=== PATIENT | female | born 1965 | race Caucasian/White ===

== ENCOUNTER 2019-08-15 22:09 | Emergency (ER) | payer OTHER ==
[~2019-08-15] VITALS: Ht 165.1 cm; Wt 77.1 kg
--- OUTSIDE RECORDS SUMMARY | 2019-08-15 22:12 | XMS REPORT | Summary of Care ---
Author Author [facility] Organization [facility] Address Unknown Phone Unavailable Encounter [facility] [place]ODRICK) [id number] Date(s): 09/30/18 - 10/01/[address] [address]- Discharge Disposition: Home or Self Care Attending Physician: Chelita Meza DO Admitting Physician: Chelita Meza DO Vital Signs 1 2 3 Most recent to oldest [Reference Range]: 165.1 cm (10/01/18 12:57 AM) Height 98.1 DegF (10/01/18 7:30 AM) 98.5 DegF (10/01/18 5:58 AM) 98.7 DegF (10/01/18 1:25 AM) Temperature Oral [96.4-99.1 DegF] 127/75 mmHg (10/01/18 7:30 AM) 113/72 mmHg (10/01/18 5:58 AM) 109/76 mmHg (10/01/18 1:25 AM) Blood Pressure [90-140/60-90 mmHg] 17 BRMIN (10/01/18 7:30 AM) 16 BRMIN (10/01/18 5:58 AM) 18 BRMIN (10/01/18 1:25 AM) Respiratory Rate [14-20 BRMIN] 84 bpm (10/01/18 7:30 AM) 89 bpm (10/01/18 5:58 AM) 103 bpm *HI* (10/01/18 1:25 AM) Peripheral Pulse Rate [60-100 bpm] 96.864 kg (10/01/18 12:57 AM) 99.545 kg (09/30/18 4:56 PM) Weight 35.54 m2 (10/01/18 12:57 AM) Body Mass Index Problem List Condition Effective Dates Status Health Status Informan t Anxiety(Confirmed) Active GERD Active (gastroesophageal reflux disease)(Confirmed) Hx of laparoscopic Resolved adjustable gastric banding(Confirmed) Hypertension(Confirm Active ed) Morbid Active obesity(Confirmed) Allergies, Adverse Reactions, Alerts Substance Reaction Severity Status NKDA Active Latex Active Grass Active Medications acetaminophen 650 mg, 2 tab, Route: PO, Drug form: TAB, Q4H, Dosing Weight 99.545, kg, PRN For Temp > 100.4 F, Start date: 09/30/18 22:54:00 CDT, Duration: 30 day, Stop date: 10/30/18 22:53:00 CDT, 0 Notes: Do not exceed 4 gm/day. (Same as: Tylenol) Start Date: 09/30/18 Stop Date: 10/01/18 Status: Discontinued Adderall XR 30 mg, Route: PO, Drug form: ERCAP, BID, Dosing Weight 99.545, kg, Start date: 0 10/01/18 9:00:00 CDT, Duration: 30 day, Stop date: 10/30/18 17:00:00 CDT Start Date: 10/01/18 Stop Date: 10/01/18 Status: Discontinued ALPRAZOLam 2 mg oral tablet 1 mg, 1 tab, Route: PO, Drug form: TAB, BID, Dosing Weight 99.545, kg, Start brii e: 10/01/18 9:00:00 CDT, Duration: 30 day, Stop date: 10/30/18 17:00:00 CDT, 0 Notes: With food or milk(Same as: Xanax) Start Date: 10/01/18 Stop Date: 10/01/18 Status: Discontinued ALPRAZOLam 2 mg oral tablet 1 mg = 0.5 tab, PO, BID Start Date: 10/01/18 Status: Ordered calcium gluconate + Sodium Chloride 0.9% IV 100 mL 2 gm, 20 mL, Route: IVPB, PRN, Dosing Weight 96.864, kg, PRN Abnormal Lab Result , For NON-ICU Patients Only., Start date: 10/01/18 7:34:00 CDT, Duration: 30 day , Stop date: 10/31/18 7:33:00 CDT, 0 Notes: WASTE: F/P - Sink; E - Municipal Trash Bin Start Date: 10/01/18 Stop Date: 10/01/18 Status: Discontinued calcium gluconate + Sodium Chloride 0.9% IV 150 mL 3 gm, 30 mL, Route: IVPB, PRN, Dosing Weight 96.864, kg, PRN Abnormal Lab Result , For NON-ICU Patients Only., Start date: 10/01/18 7:34:00 CDT, Duration: 30 day , Stop date: 10/31/18 7:33:00 CDT, 0 Notes: WASTE: F/P - Sink; E - Municipal Trash Bin Start Date: 10/01/18 Stop Date: 10/01/18 Status: Discontinued Dextrose 50% Syringe 12.5 gm, 25 mL, Route: IVP, Drug Form: INJ, Dosing Weight 99.545, kg, PRN, PRN B lood Glucose Results, Start date: 09/30/18 22:54:00 CDT, Duration: 30 day, Stop date: 10/30/18 22:53:00 CDT, 0 Start Date: 09/30/18 Stop Date: 10/01/18 Status: Discontinued Dextrose 50% Syringe 25 gm, 50 mL, Route: IVP, Drug Form: INJ, Dosing Weight 99.545, kg, PRN, PRN Blo od Glucose Results, Start date: 09/30/18 22:54:00 CDT, Duration: 30 day, Stop da te: 10/30/18 22:53:00 CDT, 0 Start Date: 09/30/18 Stop Date: 10/01/18 Status: Discontinued enoxaparin 40 mg, 0.4 mL, Route: SUB-Q, Drug form: INJ, [id number], Dosing Weight 96.864, kg, Start date: 10/01/18 8:00:00 CDT, Duration: 30 day, Stop date: 10/30/18 8:00:00 CDT, 0 Notes: (Same as: Lovenox) Start Date: 10/01/18 Stop Date: 10/01/18 Status: Discontinued famotidine 20 mg, 2 mL, Route: IVP, Drug form: INJ, ONCE, Dosing Weight 99.545, kg, Start d ate: 09/30/18 21:12:00 CDT, Stop date: 09/30/18 21:12:00 CDT, 0 Notes: (Same as: Pepcid)Can be dilute in 5-10cc NS IVP: Slow IV push over at le ast 2 minutes. Start Date: 09/30/18 Stop Date: 09/30/18 Status: Completed Flomax 0.4 mg, 1 cap, Route: PO, Drug form: CAP, After Breakfast, Dosing Weight 96.864, kg, Start date: 10/02/18 8:30:00 CDT, Duration: 30 day, Stop date: 10/31/18 8:3 0:00 CDT, 0 Notes: (Same As: Flomax) "Do Not Crush" Start Date: 10/02/18 Stop Date: 10/01/18 Status: Canceled glucagon 1 mg, Route: IM, Drug form: PDR/INJ, PRN, Dosing Weight 99.545, kg, PRN Blood Gl ucose Results, Start date: 09/30/18 22:54:00 CDT, Duration: 30 day, Stop date: 0 10/30/18 22:53:00 CDT, 0 Start Date: 09/30/18 Stop Date: 10/01/18 Status: Discontinued hydrALAZINE 10 mg, Route: IVP, ONCE, Dosing Weight 99.545, kg, Priority: STAT, Start date: 0 09/30/18 23:10:00 CDT, Stop date: 09/30/18 23:10:00 CDT Start Date: 09/30/18 Stop Date: 09/30/18 Status: Completed hydrochlorothiazide 25 mg oral tablet 25 mg, 1 tab, Route: PO, Drug form: TAB, Daily, Dosing Weight 99.545, kg, Start date: 10/01/18 9:00:00 CDT, Duration: 30 day, Stop date: 10/30/18 9:00:00 CDT, 0 Notes: (Same as: Hydrodiuril) With food. Start Date: 10/01/18 Stop Date: 10/01/18 Status: Discontinued magnesium oxide 800 mg, 2 tab, Route: PO, Drug form: TAB, PRN, Dosing Weight 96.864, kg, PRN Abn ormal Lab Result, For NON-ICU Patients Only., Start date: 10/01/18 7:34:00 CDT, Duration: 30 day, Stop date: 10/31/18 7:33:00 CDT, 0 Notes: (Same as: Mag-Ox 400)Magnesium oxide [id number] elemental magnesiumDose= ____mg magnesium oxide (___mg elemental magnesium) Start Date: 10/01/18 Stop Date: 10/01/18 Status: Discontinued magnesium sulfate 1 gm, 100 mL, Route: IVPB, Drug form: INJ, PRN, Dosing Weight 96.864, kg, PRN Ab normal Lab Result, For NON-ICU Patients Only., Start date: 10/01/18 7:34:00 CDT, Duration: 30 day, Stop date: 10/31/18 7:33:00 CDT, 0 Notes: WASTE: F/P - Sink; E - Municipal Trash Bin Start Date: 10/01/18 Stop Date: 10/01/18 Status: Discontinued magnesium sulfate 2 gm, 50 mL, Route: IVPB, Drug form: INJ, PRN, Dosing Weight 96.864, kg, PRN Abn ormal Lab Result, For NON-ICU Patients Only., Start date: 10/01/18 7:34:00 CDT, Duration: 30 day, Stop date: 10/31/18 7:33:00 CDT, 0 Notes: WASTE: F/P - Sink; E - Municipal Trash Bin Start Date: 10/01/18 Stop Date: 10/01/18 Status: Discontinued metoclopramide 10 mg, 2 mL, Route: IVP, Drug form: INJ, ONCE, Dosing Weight 99.545, kg, Start d ate: 09/30/18 21:12:00 CDT, Stop date: 09/30/18 21:12:00 CDT, 0 Notes: (Same as: Reglan) Start Date: 09/30/18 Stop Date: 09/30/18 Status: Completed morphine Sulfate 2 mg, 0.5 mL, Route: IVP, Drug form: SOLN, Q4H, Dosing Weight 99.545, kg, PRN Pa in Score 7-10, Start date: 09/30/18 22:54:00 CDT, Duration: 30 day, Stop date: 0 10/30/18 22:53:00 CDT, 0 Notes: (Same as:MORPhine Sulfate) Start Date: 09/30/18 Stop Date: 10/01/18 Status: Discontinued morphine Sulfate 4 mg, 1 mL, Route: IVP, Drug form: SOLN, ONCE, Dosing Weight 99.545, kg, Priorit y: STAT, Start date: 09/30/18 21:12:00 CDT, Stop date: 09/30/18 21:12:00 CDT, 0 Notes: (Same as:MORPhine Sulfate) Start Date: 09/30/18 Stop Date: 09/30/18 Status: Completed ondansetron 8 mg, Route: IVP, Q8H, Dosing Weight 99.545, kg, PRN Nausea & Vomiting, Start date: 09/30/18 22:54:00 CDT, Duration: 30 day, Stop date: 10/30/18 22:53:00 CDT Start Date: 09/30/18 Stop Date: 10/01/18 Status: Discontinued ondansetron 8 mg, 4 mL, Route: IVP, Drug form: INJ, Q8H, Dosing Weight 99.545, kg, PRN Nause a & Vomiting, Start date: 09/30/18 22:54:00 CDT, Duration: 30 day, Stop date: 10/30/18 22:53:00 CDT, 0 Notes: (Same as: Lillian) MEDICATION WASTE Product Size: 4 mgProduct Was kelly: ___ mg Start Date: 09/30/18 Stop Date: 10/01/18 Status: Discontinued pantoprazole 40 mg, Route: IV, Daily, Dosing Weight 99.545, kg, Start date: 10/01/18 9:00:00 CDT, Duration: 30 day, Stop date: 10/30/18 9:00:00 CDT Start Date: 10/01/18 Stop Date: 10/01/18 Status: Discontinued polyethylene glycol 3350 17 gm, 1 pkt, Route: PO, Drug form: PWDR, Daily, Dosing Weight 99.545, kg, Start date: 10/01/18 9:00:00 CDT, Duration: 30 day, Stop date: 10/30/18 9:00:00 CDT, 0 Notes: Dissolve in 8 oz of water or juice.(Same as: Miralax) Start Date: 10/01/18 Stop Date: 10/01/18 Status: Discontinued potassium chloride 10 mEq, 100 mL, Route: IVPB, Drug form: INJ, Q1H, Dosing Weight 99.545, kg, Tota l Dose = 40 meq, Start date: 09/30/18 23:00:00 CDT, Duration: 4 doses or times, Stop date: 10/01/18 2:00:00 CDT, Peripheral Line, 0 Notes: Infuse at a rate of 10 mEq/hr.(Same as: KCL) Start Date: 09/30/18 Stop Date: 10/01/18 Status: Completed potassium chloride 40 mEq, 2 tab, Route: PO, Drug form: ERTAB, ONCE, Dosing Weight 96.864, kg, Star t date: 10/01/18 5:53:00 CDT, Stop date: 10/01/18 5:53:00 CDT, 0 Notes: (Same as: K-Dur 20)"Do Not Crush" Give with food and full glass of water For patients unable to swallow tablet, dissolve in one half glass of water. Allo w about 2 minutes for the tablets to disintegrate. Stir before giving to prepare slurry and administer.Please exclude Patients with feeding tube less than 14 Marshallese (Dobhoff, J-tube etc) and pediatric and patients. Start Date: 10/01/18 Stop Date: 10/01/18 Status: Completed potassium chloride 10 mEq, 100 mL, Route: IVPB, Drug form: INJ, Q1H, Dosing Weight 96.864, kg, Tota l Dose = 20 meq, Start date: 10/01/18 6:00:00 CDT, Duration: 2 doses or times, S top date: 10/01/18 7:00:00 CDT, Peripheral Line, 0 Notes: Infuse at a rate of 10 mEq/hr.(Same as: KCL) Start Date: 10/01/18 Stop Date: 10/01/18 Status: Completed potassium chloride 20 mEq, 1 tab, Route: PO, Drug form: ERTAB, PRN, Dosing Weight 96.864, kg, PRN A bnormal Lab Result, For NON-ICU Patients Only, Start date: 10/01/18 7:34:00 CDT, Duration: 30 day, Stop date: 10/31/18 7:33:00 CDT, 0 Notes: (Same as: K-Dur 20)"Do Not Crush" Give with food and full glass of water For patients unable to swallow tablet, dissolve in one half glass of water. Allo w about 2 minutes for the tablets to disintegrate. Stir before giving to prepare slurry and administer.Please exclude Patients with feeding tube less than 14 Marshallese (Dobhoff, J-tube etc) and pediatric and patients. Start Date: 10/01/18 Stop Date: 10/01/18 Status: Discontinued potassium chloride 20 mEq, 1 tab, Route: NJ, Drug form: ERTAB, PRN, Dosing Weight 96.864, kg, PRN A bnormal Lab Result, For NON-ICU Patients Only, Start date: 10/01/18 7:34:00 CDT, Duration: 30 day, Stop date: 10/31/18 7:33:00 CDT, 0 Notes: (Same as: K-Dur 20)"Do Not Crush" Give with food and full glass of water For patients unable to swallow tablet, dissolve in one half glass of water. Allo w about 2 minutes for the tablets to disintegrate. Stir before giving to prepare slurry and administer.Please exclude Patients with feeding tube less than 14 Marshallese (Dobhoff, J-tube etc) and pediatric and patients. Start Date: 10/01/18 Stop Date: 10/01/18 Status: Discontinued potassium chloride 10 mEq, 100 mL, Route: IVPB, Drug form: INJ, PRN, Dosing Weight 96.864, kg, PRN Abnormal Lab Result, For NON-ICU Patients Only, Start date: 10/01/18 7:34:00 CDT , Duration: 30 day, Stop date: 10/31/18 7:33:00 CDT, 0 Notes: Infuse at a rate of 10 mEq/hr.(Same as: KCL) Start Date: 10/01/18 Stop Date: 10/01/18 Status: Discontinued potassium phosphate + Sodium Chloride 0.9% IV 250 mL 30 mmol, 10 mL, Route: IVPB, PRN, Dosing Weight 96.864, kg, PRN Abnormal Lab Res ult, For NON-ICU Patients Only., Start date: 10/01/18 7:34:00 CDT, Duration: 30 day, Stop date: 10/31/18 7:33:00 CDT, 0 Notes: (Same as: K Phosphate.)Do not infuse phosphorous concurrently in the same line as TPN or IVF that contains calcium. For double lumen central lines, phosp horous may be infused in a separate lumen from TPN. 1 mMol phoshate has 1.47 mE q potassium Infuse over 4 hours Start Date: 10/01/18 Stop Date: 10/01/18 Status: Discontinued potassium phosphate + Sodium Chloride 0.9% IV 250 mL 15 mmol, 5 mL, Route: IVPB, PRN, Dosing Weight 96.864, kg, PRN Abnormal Lab Resu lt, For NON-ICU Patients Only., Start date: 10/01/18 7:34:00 CDT, Duration: 30 d ay, Stop date: 10/31/18 7:33:00 CDT, 0 Notes: (Same as: K Phosphate.)Do not infuse phosphorous concurrently in the same line as TPN or IVF that contains calcium. For double lumen central lines, phosp horous may be infused in a separate lumen from TPN. 1 mMol phoshate has 1.47 mE q potassium Infuse over 4 hours Start Date: 10/01/18 Stop Date: 10/01/18 Status: Discontinued potassium phosphate-sodium phosphate 250 mg-280 mg-160 mg oral powder for recons titution 2 pkt, Route: PO, Drug Form: PDR/REC, Dosing Weight 96.864, kg, PRN, PRN Abnorma l Lab Result, For NON-ICU Patients Only, Start date: 10/01/18 7:34:00 CDT, Durat ion: 30 day, Stop date: 10/31/18 7:33:00 CDT, 0 Notes: (Same as: Phos-NaK) Each 1.5 gm pkt has 250mg phosphorous. Mix w/2.5oz w ater and stir. Start Date: 10/01/18 Stop Date: 10/01/18 Status: Discontinued Protonix 40 mg, 1 tab, Route: PO, Drug form: ECTAB, Before Dinner, Start date: 10/01/18 1 6:30:00 CDT, Duration: 30 day, Stop date: 10/30/18 16:30:00 CDT, 0 Notes: Tablet should not be chewed or crushed.(Same as: Protonix) Start Date: 10/01/18 Stop Date: 10/01/18 Status: Discontinued Reglan 10 mg, 2 mL, Route: IVP, Drug form: INJ, Q6H, Dosing Weight 99.545, kg, PRN Naus ea, For CrCl > 40 ml/min, Start date: 09/30/18 22:54:00 CDT, Duration: 30 day, Stop date: 10/30/18 22:53:00 CDT, 0 Notes: (Same as: Reglan) Start Date: 09/30/18 Stop Date: 10/01/18 Status: Discontinued Saline Flush 0.9% 10 ml, Route: IVP, Drug Form: INJ, Dosing Weight 99.545, kg, PRN, PRN Line Flush , Start date: 09/30/18 22:54:00 CDT, Duration: 30 day, Stop date: 10/30/18 22:53 :00 CDT, 0 Notes: (Same as: BD Posiflush) Start Date: 09/30/18 Stop Date: 10/01/18 Status: Discontinued Saline Flush 0.9% 10 mL, Route: IVP, Drug Form: INJ, Dosing Weight 99.545, kg, PRN, PRN Line Flush , Start date: 09/30/18 21:12:00 CDT, Duration: 30 day, Stop date: 10/30/18 21:11 :00 CDT, 0 Notes: (Same as: BD Posiflush) Start Date: 09/30/18 Stop Date: 10/01/18 Status: Discontinued Saline Flush 0.9% 10 mL, Route: IVP, Drug Form: INJ, Dosing Weight 109.545, kg, PRN, PRN Line Flus h, Start date: 09/30/18 16:59:00 CDT, Duration: 30 day, Stop date: 10/30/18 16:5 8:00 CDT, 0 Notes: (Same as: BD Posiflush) Start Date: 09/30/18 Stop Date: 09/30/18 Status: Discontinued Sodium Chloride 0.9% IV 1,000 mL 1,000 mL, Rate: 125 ml/hr, Infuse over: 8 hr, Route: IV, Dosing Weight 99.545 kg , Total Volume: 1,000, Start date: 09/30/18 21:12:00 CDT, Duration: 30 day, Stop date: 10/30/18 21:11:00 CDT, 2.1, m2, 0 Start Date: 09/30/18 Stop Date: 10/01/18 Status: Discontinued Sodium Chloride 0.9% IV 984.8 mL + M.V.I.-12 10 mL Daily + folic acid IV 1 mg Da mil + thiamine IV 5 984.8 mL, Rate: 500 ml/hr, Infuse over: 2 hr, Route: IV, Dosing Weight 99.545 kg , Total Volume: 1,000 mL, Priority: STAT, Start date: 09/30/18 21:12:00 CDT, Dur ation: 1 doses or times, Stop date: 09/30/18 23:11:00 CDT, 2.1, m2, 0 Start Date: 09/30/18 Stop Date: 09/30/18 Status: Completed sodium phosphate + Sodium Chloride 0.9% IV 250 mL 30 mmol, 10 mL, Route: IVPB, PRN, Dosing Weight 96.864, kg, PRN Abnormal Lab Res ult, For NON-ICU Patients Only., Start date: 10/01/18 7:34:00 CDT, Duration: 30 day, Stop date: 10/31/18 7:33:00 CDT, 0 Notes: Infuse over 4 hour. Do not infuse phosphorous concurrently in the same li ne as TPN or IVF that contains calcium. For double lumen central lines, phosphor ous may be infused in a separate lumen from TPN. Start Date: 10/01/18 Stop Date: 10/01/18 Status: Discontinued sodium phosphate + Sodium Chloride 0.9% IV 250 mL 15 mmol, 5 mL, Route: IVPB, PRN, Dosing Weight 96.864, kg, PRN Abnormal Lab Resu lt, For NON-ICU Patients Only., Start date: 10/01/18 7:34:00 CDT, Duration: 30 d ay, Stop date: 10/31/18 7:33:00 CDT, 0 Notes: Infuse over 4 hour. Do not infuse phosphorous concurrently in the same li ne as TPN or IVF that contains calcium. For double lumen central lines, phosphor ous may be infused in a separate lumen from TPN. Start Date: 10/01/18 Stop Date: 10/01/18 Status: Discontinued tamsulosin 0.4 mg oral capsule 0.4 mg = 1 cap, PO, After Breakfast, 0 Refill(s) Start Date: 10/01/18 Stop Date: 10/01/18 Status: Discontinued tamsulosin 0.4 mg oral capsule 0.4 mg = 1 cap, PO, After Breakfast, # 30 cap, 0 Refill(s), Pharmacy: [id number] Start Date: 10/01/18 Status: Ordered trazodone 150 mg, 1 tab, Route: PO, Drug form: TAB, Bedtime, Dosing Weight 99.545, kg, PRN Sleep, Start date: 10/01/18 0:16:00 CDT, Duration: 30 day, Stop date: 10/31/18 0:15:00 CDT, 0 Notes: (Same As: Natalie) Start Date: 10/01/18 Stop Date: 10/01/18 Status: Discontinued Tylenol with Codeine #3 oral tablet 1 - 2 tab, PO, Q4H, PRN Pain, X 2 day, # 20 tab, 0 Refill(s) Start Date: 10/01/18 Stop Date: 10/03/18 Status: Completed Zofran 4 mg oral tablet 4 mg = 1 tab, PO, Q8H, PRN Nausea/vomiting, # 30 tab, 0 Refill(s), Pharmacy: [id number] Start Date: 10/01/18 Stop Date: 10/11/18 Status: Ordered Results Most recent to 1 2 oldest [Reference Range]: Neutrophils # 6.6 K/CMM 8.2 K/CMM [1.5-8.1 K/CMM] (10/01/18 5:20 AM) *HI* (09/30/18 9:29 PM) Lymphocytes # 1.9 K/CMM 1.1 K/CMM [1.0-5.5 K/CMM] (10/01/18 5:20 AM) (09/30/18 9:29 PM) Monocytes # [0.0-0.8 0.9 K/CMM 0.8 K/CMM K/CMM] *HI* (09/30/18 9:29 PM) (10/01/18 5:20 AM) Eosinophils # 0.1 K/CMM 0.1 K/CMM [0.0-0.5 K/CMM] (10/01/18 5:20 AM) (09/30/18 9:29 PM) Basophils # [0.0-0.2 0.1 K/CMM 0.1 K/CMM K/CMM] (10/01/18 5:20 AM) (09/30/18 9:29 PM) Plt Morph [Normal] Normal (09/30/18 9:29 PM) eGFR 83 mL/min/1.73m2 1 59 mL/min/1.73m2 2 *NA* *NA* (10/01/18:20 AM) (09/30/18 9:29 PM) A/G Ratio [0.7-1.6] 0.8 1.0 (10/01/18 5:20 AM) (09/30/18 9:29 PM) Albumin Lvl [3.5-5.0 3.0 g/dL 3.8 g/dL g/dL] *LOW* (09/30/18 9:29 PM) (10/01/18 5:20 AM) Alk Phos [39-136 135 unit/L 139 unit/L unit/L] (10/01/18 5:20 AM) *HI* (09/30/18 9:29 PM) ALT [0-65 unit/L] 78 unit/L 69 unit/L *HI* *HI* (10/01/18 5:20 AM) (09/30/18 9:29 PM) AGAP [10.0-20.0 11.0 mEq/L 11.7 mEq/L mEq/L] (10/01/18 5:20 AM) (09/30/18 9:29 PM) AST [0-37 unit/L] 119 unit/L 90 unit/L *HI* *HI* (10/01/18 5:20 AM) (09/30/18 9:29 PM) B/C Ratio [6-25] 10 11 (10/01/18:20 AM) (09/30/18 9:29 PM) Basophils [0.0-1.0 0.7 % 0.7 % %] (10/01/18:20 AM) (09/30/18 9:29 PM) BUN [7-22 mg/dL] 8 mg/dL 12 mg/dL (10/01/18:20 AM) (09/30/18 9:29 PM) Calcium Lvl 8.6 mg/dL 9.3 mg/dL [8.5-10.5 mg/dL] (10/01/18:20 AM) (09/30/18 9:29 PM) Chloride Lvl [95-109 107 mEq/L 105 mEq/L mEq/L] (10/01/18:20 AM) (09/30/18 9:29 PM) CO2 [24-32 mEq/L] 28 mEq/L 28 mEq/L (10/01/18:20 AM) (09/30/18 9:29 PM) Creatinine Lvl 0.82 mg/dL 1.08 mg/dL [0.50-1.40 mg/dL] (10/01/18:20 AM) (09/30/18 9:29 PM) Eosinophils [0.0-4.0 1.5 % 0.8 % %] (10/01/18:20 AM) (09/30/18 9:29 PM) Globulin [2.7-4.2 3.6 g/dL 3.8 g/dL g/dL] (10/01/18:20 AM) (09/30/18 9:29 PM) Glucose Lvl [70-99 111 mg/dL 129 mg/dL mg/dL] *HI* *HI* (10/01/18:20 AM) (09/30/18 9:29 PM) Hct [36.0-48.0 %] 30.5 % 33.5 % *LOW* *LOW* (10/01/18:20 AM) (09/30/18 9:29 PM) Hgb [12.0-16.0 g/dL] 9.3 g/dL 10.5 g/dL *LOW* *LOW* (10/01/18:20 AM) (09/30/18 9:29 PM) Potassium Lvl 3.0 mEq/L 3 2.7 mEq/L 4 [3.5-5.1 mEq/L] *CRIT* *CRIT* (10/01/18 5:20 AM) (09/30/18 9:29 PM) Lymphocytes 19.5 % 10.4 % [20.0-40.0 %] *LOW* *LOW* (10/01/18:20 AM) (09/30/18 9:29 PM) MCH [27.0-31.0 pg] 21.0 pg 21.4 pg *LOW* *LOW* (10/01/18:20 AM) (09/30/18 9:29 PM) MCHC [32.0-36.0 30.4 g/dL 31.4 g/dL g/dL] *LOW* *LOW* (10/01/18:20 AM) (09/30/18 9:29 PM) MCV [80.0-98.0 fL] 69.1 fL 68.1 fL *LOW* *LOW* (10/01/18:20 AM) (09/30/18 9:29 PM) Microcyte [None 2+ 3+ Seen] *ABN* *NA* (10/01/18:20 AM) (09/30/18 9:29 PM) Monocytes [2.0-12.0 9.4 % 7.6 % %] (10/01/18:20 AM) (09/30/18 9:29 PM) MPV [7.4-10.4 fL] 7.3 fL 7.2 fL *LOW* *LOW* (10/01/18:20 AM) (09/30/18 9:29 PM) Sodium Lvl [135-145 143 mEq/L 142 mEq/L mEq/L] (10/01/18:20 AM) (09/30/18 9:29 PM) Platelet [133-450 416 K/CMM 420 K/CMM K/CMM] (10/01/18 5:20 AM) (09/30/18 9:29 PM) Segs [45.0-75.0 %] 68.9 % 80.5 % (7/20/19 5:20 AM) *HI* (09/30/18 9:29 PM) Total Protein 6.6 g/dL 7.6 g/dL [6.4-8.4 g/dL] (10/01/18 5:20 AM) (09/30/18 9:29 PM) RBC [4.20-5.40 4.42 M/CMM 4.92 M/CMM M/CMM] (10/01/18 5:20 AM) (09/30/18 9:29 PM) RDW [11.5-14.5 %] 17.8 % 17.6 % *HI* *HI* (10/01/18 5:20 AM) (09/30/18 9:29 PM) S Preg [Negative] Negative *NA* (09/30/18 9:29 PM) Bili Total [0.2-1.3 0.5 mg/dL 0.5 mg/dL mg/dL] (10/01/18 5:20 AM) (09/30/18 9:29 PM) WBC [3.7-10.4 K/CMM] 9.5 K/CMM 10.2 K/CMM (10/01/18 5:20 AM) (09/30/18 9:29 PM) 1Result Comment: The eGFR is calculated using the CKD-EPI formula. In most young, healthy individuals the eGFR will be >90 mL/min/1.73m2. The eGFR declines with age. An eGFR of 60-89 may be normal in some populations, particularly the elderly, for whom the CKD-EPI formula has not been extensively validated. Use of the eGFR is not recommended in the following populations: Individuals with unstable creatinine concentrations, including patients and those with serious co-morbid conditions. Patients with extremes in muscle mass or diet. The data above are obtained from the National Kid[employer] Education Program ( [employer]) which additionally recommends that when the eGFR is used in patients with extremes of body mass index for purposes of drug dosing, the eGFR should be mul tiplied by the estimated BMI. 2Result Comment: The eGFR is calculated using the CKD-EPI formula. In most young, healthy individuals the eGFR will be >90 mL/min/1.73m2. The eGFR declines with age. An eGFR of 60-89 may be normal in some populations, particularly the elderly, for whom the CKD-EPI formula has not been extensively validated. Use of the eGFR is not recommended in the following populations: Individuals with unstable creatinine concentrations, including patients and those with serious co-morbid conditions. Patients with extremes in muscle mass or diet. The data above are obtained from the National Kid[employer] Disease Education Program ( [employer]) which additionally recommends that when the eGFR is used in patients with extremes of body mass index for purposes of drug dosing, the eGFR should be mul tiplied by the estimated BMI. 3Result Comment: Critical Result(s) called to Sean Dalton at 10/01/2018 05:46 by PATY. Read back OK. 4Result Comment: Critical Result(s) called to BUCK SCHAEFFER at 09/30/2018 21:50 by REGLA. Read back OK. Immunizations No data available for this section Procedures Procedure Date Related Diagnosis Body Site Status Laparoscopic gastric bypass 06/28/18 Completed Cholecystectomy Completed CS - section Completed Laparoscopic adjustable gastric banding Completed Miscellaneous operations1 Completed Removal of gastric band Completed Tonsillectomy Completed 1nerve block 1998, 2000 at knee, ankle Social History Social History Type Response Smoking Status Former smoker; Type: Cigare ttes; Ready to change: No; Concerns about tobacco use in household: No; Exposure to Tobacco Smoke None; Cigarette Smoking Last 365 Days No; Reg Smoking C essation Counseling Yes entered on: 09/30/18 Assessment and Plan Extracted from: Title: Hospitalist Progress Note Author: Chelita Meza Ma DO Date: 10/01/18 Impression and Plan - L-sided hydronephrosis with 2 mm obstr ucting nephrolithiasis at the ureterovesical junction, for urology eval today. Currently on clears, will make NPO in case of possible cystoscopy. - Morbid obesity s/p gastric bypass surg [facility]len in June 2018 - Anemia, Hgb noted 9.3 from 10.5, pt cu rrently receiving NS@125, likely was hemoconcentrated on admission from n/v and decreased PO. Will repeat CBC, monitor. - Hypokalemia, will order electrolyte MP P, replete per protocol, repeat BMP in AM - DVT ppx: will order lovenox - Code status: Full - Dispo: 0-1 MN. Awaiting urology input; if cleared by urology plan DC today, otherwise will make inpatient. Extracted from: Title: History and Physical Author: Raymundo Madison rd, MD Date: 09/30/18 Intractable nausea and vomiting Intractable pain Kidney stone Hydronephrosis Status post gastric bypass We will admit patient continue IV fluids, continue pain medicationnausea medicationurology consulted Ambulation 1-2 midnights
--- OUTSIDE RECORDS SUMMARY | 2019-08-15 22:12 | XMS REPORT | Summary of Care ---
Author Author [facility] Organization [facility] Address Unknown Phone Unavailable Encounter YOKASTA Chawla(RODRICK) [id number] Date(s): 06/28/18 - 06/29/[address] [address]- Encounter Diagnosis Morbid (severe) obesity due to excess calories (Final) - Discharge Disposition: Home or Self Care Attending Physician: Jeffery Wu MD Admitting Physician: Jeffery Wu MD Referring Physician: Jeffery Wu MD Vital Signs 1 2 3 Most recent to oldest [Reference Range]: 152.4 cm (06/24/18 2:59 PM) Height 98.2 DegF (06/29/18 7:45 AM) 98.6 DegF (06/29/18 4:00 AM) 98.2 DegF (06/29/18 12:00 AM) Temperature Oral [96.4-99.1 DegF] 174/116 mmHg *HI* (06/29/18 7:45 AM) 143/85 mmHg *HI* (06/29/18 4:00 AM) 150/91 mmHg *HI* (06/29/18 2:28 AM) Blood Pressure [90-140/60-90 mmHg] 17 BRMIN (06/29/18 7:45 AM) 17 BRMIN (06/29/18 4:00 AM) 18 BRMIN (06/29/18 12:00 AM) Respiratory Rate [14-20 BRMIN] 98 bpm (06/29/18 7:45 AM) 93 bpm (06/29/18 4:00 AM) 101 bpm *HI* (06/29/18 2:28 AM) Peripheral Pulse Rate [60-100 bpm] 109.545 kg (06/24/18 2:59 PM) Weight 47.17 m2 (06/24/18 2:59 PM) Body Mass Index Problem List Condition Effective Dates Status Health Status Informan t Anxiety(Confirmed) Active GERD Active (gastroesophageal reflux disease)(Confirmed) Hx of laparoscopic Resolved adjustable gastric banding(Confirmed) Hypertension(Confirm Active ed) Morbid Active obesity(Confirmed) Allergies, Adverse Reactions, Alerts Substance Reaction Severity Status NKDA Active Latex Active Grass Active Medications 1/2NS + KCL 20mEq/L 1000ml (Premix) 1,000 mL 1,000 mL, Rate: 125 ml/hr, Infuse over: 8 hr, Route: IV, Dosing Weight 109.545 k g, Total Volume: 1,000, Start date: 06/28/18 9:16:00 CDT, Duration: 30 day, Stop date: 07/28/18 9:15:00 CDT, 2.2, m2 Notes: PREMIX IV - Do Not AlterWASTE: F/P - Sink; E - Municipal Trash Bin Start Date: 06/28/18 Stop Date: 06/29/18 Status: Discontinued acetaminophen (ANES) Route: IV, Drug form: INJ, ONCE, Stop date: 06/28/18 8:32:00 CDT Start Date: 06/28/18 Stop Date: 06/28/18 Status: Completed albuterol (ANES) Route: ENDOTRACHEAL, Drug form: AERO/A, ONCE, Stop date: 06/28/18 8:47:00 CDT Start Date: 06/28/18 Stop Date: 06/28/18 Status: Completed ANES albuterol 0.083% inhalation solution 2.49 mg, 3 mL, Route: NEB, Drug form: SOLN, Q20Min, Dosing Weight 109.545, kg, P RN Wheezing, Priority: STAT, Start date: 06/28/18 8:13:00 CDT, Duration: 30 day, Stop date: 07/28/18 8:12:00 CDT Notes: SEE RT DOCUMENTATION (Same as: Ginna) Start Date: 06/28/18 Stop Date: 06/28/18 Status: Discontinued ANES diphenhydrAMINE 12.5 mg, 0.25 mL, Route: IVP, Drug form: INJ, Q6H, Dosing Weight 109.545, kg, WI N Itching, Start date: 06/28/18 8:13:00 CDT, Duration: 30 day, Stop date: 8:12:00 CDT Notes: (Same as: Benadryl) Start Date: 06/28/18 Stop Date: 06/28/18 Status: Discontinued ANES flumazenil 0.2 mg, 2 mL, Route: IVP, Drug form: INJ, PRN, Dosing Weight 109.545, kg, PRN Be nzodiazepine Reversal, Initial dose, Start date: 06/28/18 8:13:00 CDT, Duration: 30 day, Stop date: 07/28/18 8:12:00 CDT Notes: (Same as: Romazicon) Start Date: 06/28/18 Stop Date: 06/28/18 Status: Discontinued ANES hydrALAZINE 10 mg, 0.5 mL, Route: IVP, Drug form: INJ, Q20Min, Dosing Weight 109.545, kg, WI N Elevated BP, Start date: 06/28/18 8:13:00 CDT, Duration: 2 doses or times, Sto p date: Limited # of times Notes: (Same as: Apresoline)Push over 5 minutes Start Date: 06/28/18 Stop Date: 06/28/18 Status: Discontinued ANES HYDROmorphone 0.5 mg, 0.25 mL, Route: IVP, Drug form: INJ, Q5Min, Dosing Weight 109.545, kg, P RN Pain Score 7-10, Start date: 06/28/18 8:13:00 CDT, Duration: 4 doses or times , Stop date: Limited # of times Notes: Same as Dilaudid Start Date: 06/28/18 Stop Date: 06/28/18 Status: Discontinued ANES labetalol 10 mg, 2 mL, Route: IVP, Drug form: INJ, Q5Min, Dosing Weight 109.545, kg, PRN E levated BP, Start date: 06/28/18 8:13:00 CDT, Duration: 5 doses or times, Stop d ate: Limited # of times Notes: (Same as: Normodyne, Trandate)Push over 2 minutes Give bolus over 2-3 mi nutes. Start Date: 06/28/18 Stop Date: 06/28/18 Status: Discontinued ANES meperidine 12.5 mg, 0.5 mL, Route: IVP, Drug form: INJ, Q30Min, Dosing Weight 109.545, kg, PRN Other -See Comment, For shivering, Start date: 06/28/18 8:13:00 CDT, Duratio n: 2 doses or times, Stop date: Limited # of times Notes: (Same as: Demerol) "Use Precaution in Elderly, Seizure disorders, and Re nal impairment" Start Date: 06/28/18 Stop Date: 06/28/18 Status: Discontinued ANES morphine Sulfate 2 mg, 0.5 mL, Route: IVP, Drug form: SOLN, Q5Min, Dosing Weight 109.545, kg, PRN Pain Score 4-6, Start date: 06/28/18 8:13:00 CDT, Duration: 5 doses or times, S top date: Limited # of times Notes: (Same as:MORPhine Sulfate) Start Date: 06/28/18 Stop Date: 06/28/18 Status: Discontinued ANES naloxone 0.4 mg, 1 mL, Route: IVP, Drug form: INJ, Q2MIN, Dosing Weight 109.545, kg, PRN Narcotic Reversal, Start date: 06/28/18 8:13:00 CDT, Duration: 8 doses or times, Stop date: Limited # of times Notes: Same as Narcan Start Date: 06/28/18 Stop Date: 06/28/18 Status: Discontinued ANES ondansetron 4 mg, 2 mL, Route: IVP, Drug form: INJ, ONCE, Dosing Weight 109.545, kg, PRN [place] & Vomiting, Start date: 06/28/18 8:13:00 CDT Notes: (Same as: Lillian) MEDICATION WASTE Product Size: 4 mgProduct Was kelly: ___ mg Start Date: 06/28/18 Stop Date: 06/28/18 Status: Discontinued ANES promethazine + Sodium Chloride 0.9% IV 50 mL 6.25 mg, 0.25 mL, Route: IVPB, ONCE, Dosing Weight 109.545, kg, PRN Nausea & Vomiting, Start date: 06/28/18 8:13:00 CDT Notes: Do not give IV push. (Same as: Phenergan) Start Date: 06/28/18 Stop Date: 06/28/18 Status: Discontinued Ativan 0.5 mg, 0.25 mL, Route: IVP, Drug form: INJ, Q8H, Dosing Weight 109.545, kg, PRN Anxiety, Start date: 06/28/18 17:44:00 CDT, Duration: 30 day, Stop date: 17:43:00 CDT Notes: (Same as: Ativan) Start Date: 06/28/18 Stop Date: 06/29/18 Status: Discontinued ceFAZolin (ANES) Route: IV, Drug form: INJ, ONCE, Stop date: 06/28/18 8:28:00 CDT Start Date: 06/28/18 Stop Date: 06/28/18 Status: Completed ceFAZolin + sterile water 20 mL 2 gm, Route: IV, ONCALL, Start date: 06/27/18 22:00:00 CDT, Duration: 22 hr, Sto p date: 06/28/18 19:59:00 CDT, ABX Indication: Surgical Prophylaxis Notes: (Same As: Alvaro Luis) MEDICATION WASTE Product Size: 1000 mgP roduct Wasted: ___ mg Start Date: 06/27/18 Stop Date: 06/29/18 Status: Discontinued Demerol HCl 50 mg, 1 mL, Route: IVP, Drug form: INJ, Q4H, Dosing Weight 109.545, kg, PRN Jason n Score 6-10, Start date: 06/28/18 9:16:00 CDT, Duration: 4 day, Stop date: 06/14 9:15:00 CDT Notes: (Same as: Demerol) "Use Precaution in Elderly, Seizure disorders, and Re nal impairment" Start Date: 06/28/18 Stop Date: 06/29/18 Status: Discontinued dexamethasone (ANES) Route: IV, Drug form: INJ, ONCE, Stop date: 06/28/18 8:32:00 CDT Start Date: 06/28/18 Stop Date: 06/28/18 Status: Completed enalaprilat 1.25 mg, 1 mL, Route: IVP, Drug form: INJ, Q6H, Dosing Weight 109.545, kg, PRN E levated BP, Start date: 06/28/18 9:16:00 CDT, Duration: 30 day, Stop date: 07/28 9:15:00 CDT, BP Systolic greater than 190 and BP Diastolic greater than 100 | Hypertension Notes: (Same as: Vasotec-IV) Start Date: 06/28/18 Stop Date: 06/29/18 Status: Discontinued ePHEDrine (ANES) Route: IV, Drug form: INJ, ONCE, Stop date: 06/28/18 9:02:00 CDT Start Date: 06/28/18 Stop Date: 06/28/18 Status: Completed famotidine 20 mg, 2 mL, Route: IVP, Drug form: INJ, Q12H, Dosing Weight 109.545, kg, Start date: 06/28/18 21:00:00 CDT, Duration: 30 day, Stop date: 07/28/18 9:00:00 CDT Notes: (Same as: Pepcid)Can be dilute in 5-10cc NS IVP: Slow IV push over at le ast 2 minutes. Start Date: 06/28/18 Stop Date: 06/29/18 Status: Discontinued fentaNYL (ANES) Route: IV, Drug form: INJ, ONCE, Stop date: 06/28/18 8:32:00 CDT Start Date: 06/28/18 Stop Date: 06/28/18 Status: Completed glycopyrrolate (ANES) Route: IV, Drug form: INJ, ONCE, Stop date: 06/28/18 9:31:00 CDT Start Date: 06/28/18 Stop Date: 06/28/18 Status: Completed heparin 5,000 unit, 1 mL, Route: SUB-Q, Drug form: INJ, ONCALL, Start date: 06/27/18 22: 00:00 CDT, Duration: 22 hr, Stop date: 06/28/18 19:59:00 CDT Notes: porcine heparin Start Date: 06/27/18 Stop Date: 06/28/18 Status: Completed heparin 5000 units/mL injectable solution 5,000 unit, 1 mL, Route: SUB-Q, Drug form: INJ, Q12H, Dosing Weight 109.545, kg, Start date: 06/28/18 22:00:00 CDT, Duration: 30 day, Stop date: 07/28/18 10:00: 00 CDT Notes: porcine heparin Start Date: 06/28/18 Stop Date: 06/29/18 Status: Discontinued hydrochlorothiazide 25 mg oral tablet 25 mg = 1 tab, PO, Daily, # 30 tab, 0 Refill(s) Start Date: 06/24/18 Status: Ordered hydrOXYzine 10 mg, PO, frequency unknown, 0 Refill(s) Start Date: 06/24/18 Status: Ordered ibuprofen 800 mg oral tablet 800 mg = 1 tab, PO, TID, PRN Pain, # 90 tab, 0 Refill(s) Start Date: 06/24/18 Stop Date: 06/29/18 Status: Discontinued ketOROLAC 30 mg, Route: IVP, PRN, Dosing Weight 109.545, kg, PRN Pain Score 1-5, PRN q 6 h rs, Start date: 06/28/18 9:16:00 CDT, Duration: 6 doses or times, Stop date: Reese ited # of times Start Date: 06/28/18 Stop Date: 06/28/18 Status: Deleted ketOROLAC (ANES) IV, ONCE Start Date: 06/28/18 Stop Date: 06/28/18 Status: Completed ketOROLAC 30 mg/mL injectable solution 30 mg, 1 mL, Route: IVP, Drug form: INJ, Q6H, Dosing Weight 109.545, kg, PRN Jason n Score 4-6, Start date: 06/28/18 9:16:00 CDT, Duration: 3 doses or times, Stop date: Limited # of times Notes: (Same as:Toradol) IV bolus must be given >15 seconds. Give IM administration slowly and deeply into the muscle.Not for use > 4 days MEDICATION WASTE Product Size: 30 mgProduct Wasted: ___ mg Start Date: 06/28/18 Stop Date: 06/29/18 Status: Completed Lactated Ringers Injection IV (ANES) 1000 mL Route: IV, Total Volume: 1,000, Start date: 06/28/18 7:38:00 CDT, Stop date: 8:38:00 CDT Start Date: 06/28/18 Stop Date: 06/28/18 Status: Completed lidocaine (ANES) Route: IV, Drug form: INJ, ONCE, Stop date: 06/28/18 8:32:00 CDT Start Date: 06/28/18 Stop Date: 06/28/18 Status: Completed metoprolol 2.5 mg, 2.5 mL, Route: IVP, Drug form: INJ, Q6H, Dosing Weight 109.545, kg, PRN Elevated BP, Systolic BP >180 or Diastolic BP >100, Start date: 06/28/18 9:16:00 CDT, Duration: 30 day, Stop date: 07/28/18 9:15:00 CDT Notes: (Same as: Lopressor)Push over 2 minutes Start Date: 06/28/18 Stop Date: 06/29/18 Status: Discontinued midazolam (ANES) Route: IV, Drug form: SOLN, ONCE, Stop date: 06/28/18 8:32:00 CDT Start Date: 06/28/18 Stop Date: 06/28/18 Status: Completed morphine Sulfate 4 mg, 1 mL, Route: IVP, Drug form: SOLN, Q4H, Dosing Weight 109.545, kg, PRN Jason n Score 7-10, Start date: 06/28/18 9:16:00 CDT, Duration: 1 day, Stop date: 06/13 09/30 9:15:00 CDT Notes: (Same as:MORPhine Sulfate) Start Date: 06/28/18 Stop Date: 06/29/18 Status: Completed neostigmine (ANES) Route: IV, Drug form: INJ, ONCE, Stop date: 06/28/18 9:31:00 CDT Start Date: 06/28/18 Stop Date: 06/28/18 Status: Completed Ofirmev 1,000 mg, 100 mL, Route: IV, Drug form: INJ, PRN, Dosing Weight 109.545, kg, PRN Pain Score 1-3, for > or = 50 kg, Start date: 06/28/18 9:16:00 CDT, Duration: 30 day, Stop date: 07/28/18 9:15:00 CDT Notes: Infuse over 15 minutesDo not exceed 4gm/day of acetaminophen MEDICAT ION WASTE Product Size: 1000 mgProduct Wasted: ___ mg Start Date: 06/28/18 Stop Date: 06/29/18 Status: Discontinued ondansetron 4 mg, 2 mL, Route: IVP, Drug form: INJ, Q6H, Dosing Weight 109.545, kg, PRN Naus ea & Vomiting, Start date: 06/28/18 9:16:00 CDT, Duration: 30 day, Stop date: 07/28/18 9:15:00 CDT Notes: (Same as: Zofran) MEDICATION WASTE Product Size: 4 mgProduct Was kelly: ___ mg Start Date: 06/28/18 Stop Date: 06/29/18 Status: Discontinued ondansetron (ANES) Route: IV, Drug form: INJ, ONCE, Stop date: 06/28/18 8:32:00 CDT Start Date: 06/28/18 Stop Date: 06/28/18 Status: Completed promethazine 12.5 mg, 0.5 mL, Route: IM, Drug form: INJ, Q4H, Dosing Weight 109.545, kg, PRN Nausea & Vomiting, Start date: 06/28/18 9:16:00 CDT, Duration: 30 day, Stop date: 07/28/18 9:15:00 CDT Notes: Do not give IV push. (Same as: Phenergan) Start Date: 06/28/18 Stop Date: 06/29/18 Status: Discontinued propofol (ANES) Route: IV, Drug form: INJ, ONCE, Stop date: 06/28/18 8:32:00 CDT Start Date: 06/28/18 Stop Date: 06/28/18 Status: Completed rocuronium (ANES) Route: IV, Drug form: INJ, ONCE, Stop date: 06/28/18 8:32:00 CDT Start Date: 06/28/18 Stop Date: 06/28/18 Status: Completed Saline Flush 0.9% 10 ml, Route: IVP, Drug Form: INJ, Dosing Weight 109.545, kg, PRN, PRN Line Flus h, Start date: 06/28/18 9:16:00 CDT, Duration: 30 day, Stop date: 07/28/18 9:15: 00 CDT Notes: preservative free. Start Date: 06/28/18 Stop Date: 06/29/18 Status: Discontinued succinylcholine (ANES) Route: IV, Drug form: INJ, ONCE, Stop date: 06/28/18 8:28:00 CDT Start Date: 06/28/18 Stop Date: 06/28/18 Status: Completed tramadol 50 mg oral tablet 50 mg, 1 tab, Route: PO, Drug form: TAB, Q4H, Dosing Weight 109.545, kg, PRN Jason n Score 4-6, Start date: 06/29/18 3:16:00 CDT, Duration: 30 day, Stop date: 07/13 09/30 3:15:00 CDT Notes: Not to exceed 400mg/day. (Same As: Ultram) Start Date: 06/29/18 Stop Date: 06/29/18 Status: Discontinued trazodone 150 mg oral tablet 150 mg = 1 tab, PO, Bedtime, # 30 tab, 0 Refill(s) Start Date: 06/24/18 Status: Ordered Results BLOOD BANK RESULTS Most recent to 03 16 oldest [Reference Range]: ABO/Rh O POS *Unknown* (06/24/18 3:37 PM) Antibody Scrn Positive 1 (06/24/18 3:37 PM) AB Int Anti Jk(a) *Unknown* (06/24/18 3:37 PM) Antigen ISIS Int Jk(a) neg *Unknown* (06/24/18 3:37 PM) 1Result Comment: 06/24/2018 17:21 [id number] "Significant Findings of _Pos AB Screen_ called to _Marita Gallo RN_ at _06/25/19 19 17:21_ by _MV_. Read Back OK" ELECTROLYTES Most recent to 1 2 oldest [Reference Range]: Sodium Lvl [135-145 140 mEq/L 141 mEq/L mEq/L] (06/29/18 4:55 AM) (06/24/18 3:37 PM) Potassium Lvl 3.5 mEq/L 3.6 mEq/L [3.5-5.1 mEq/L] (06/29/18 4:55 AM) (06/24/18 3:37 PM) Chloride Lvl [95-109 103 mEq/L 104 mEq/L mEq/L] (06/29/18 4:55 AM) (06/24/18 3:37 PM) CO2 [24-32 mEq/L] 28 mEq/L 27 mEq/L (06/29/18 4:55 AM) (06/24/18 3:37 PM) AGAP [10.0-20.0 12.5 mEq/L 13.6 mEq/L mEq/L] (06/29/18 4:55 AM) (06/24/18 3:37 PM) CHEM PANEL Most recent to 1 2 oldest [Reference Range]: Creatinine Lvl 0.66 mg/dL 0.98 mg/dL [0.50-1.40 mg/dL] (06/29/18 4:55 AM) (06/24/18 3:37 PM) eGFR 102 mL/min/1.73m2 1 66 mL/min/1.73m2 2 *NA* *NA* (06/29/18 4:55 AM) (06/24/18 3:37 PM) BUN [7-22 mg/dL] 6 mg/dL 18 mg/dL *LOW* (06/24/18 3:37 PM) (06/29/18 4:55 AM) B/C Ratio [6-25] 9 18 (06/29/18 4:55 AM) (06/24/18 3:37 PM) Glucose Lvl [70-99 116 mg/dL 128 mg/dL mg/dL] *HI* *HI* (06/29/18 4:55 AM) (06/24/18 3:37 PM) Total Protein 6.6 g/dL 8.3 g/dL [6.4-8.4 g/dL] (06/29/18 4:55 AM) (06/24/18 3:37 PM) Albumin Lvl [3.5-5.0 3.1 g/dL 4.2 g/dL g/dL] *LOW* (06/24/18 3:37 PM) (06/29/18 4:55 AM) Globulin [2.7-4.2 3.5 g/dL 4.1 g/dL g/dL] (06/29/18 4:55 AM) (06/24/18 3:37 PM) A/G Ratio [0.7-1.6] 0.9 1.0 (06/29/18 4:55 AM) (06/24/18 3:37 PM) Calcium Lvl 8.6 mg/dL 9.7 mg/dL [8.5-10.5 mg/dL] (06/29/18 4:55 AM) (06/24/18 3:37 PM) ALT [0-65 unit/L] 37 unit/L 30 unit/L (06/29/18 4:55 AM) (06/24/18 3:37 PM) AST [0-37 unit/L] 33 unit/L 14 unit/L (06/29/18 4:55 AM) (06/24/18 3:37 PM) Alk Phos [39-136 76 unit/L 100 unit/L unit/L] (06/29/18 4:55 AM) (06/24/18 3:37 PM) Bili Total [0.2-1.3 0.8 mg/dL 0.4 mg/dL mg/dL] (06/29/18 4:55 AM) (06/24/18 3:37 PM) Vitamin B1 155.9 nMol/L 3 [66.5-200.0 nMol/L] *NA* (06/24/18 3:37 PM) 1Result Comment: The eGFR is calculated [...] tiplied by the estimated BMI. 3Result Comment: This test was developed and its performance characteristics determined by [facility]. It has not been cleared or approved by the Food and Drug Administration. Performed At: [facility] [id number] Eliceo Leroy MD Ph:[phone] HEMATOLOGY Most recent to 1 2 oldest [Reference Range]: WBC [3.7-10.4 K/CMM] 10.7 K/CMM 11.2 K/CMM *HI* *HI* (06/29/18 4:55 AM) (06/24/18 3:37 PM) RBC [4.20-5.40 4.50 M/CMM 5.70 M/CMM M/CMM] (06/29/18 4:55 AM) *HI* (06/24/18 3:37 PM) Hgb [12.0-16.0 g/dL] 11.4 g/dL 14.5 g/dL *LOW* (06/24/18 3:37 PM) (06/29/18 4:55 AM) Hct [36.0-48.0 %] 35.2 % 44.5 % *LOW* (06/24/18 3:37 PM) (06/29/18 4:55 AM) MCV [80.0-98.0 fL] 78.3 fL 78.1 fL *LOW* *LOW* (06/29/18 4:55 AM) (06/24/18 3:37 PM) MCH [27.0-31.0 pg] 25.4 pg 25.4 pg *LOW* *LOW* (06/29/18 4:55 AM) (06/24/18 3:37 PM) MCHC [32.0-36.0 32.4 g/dL 32.6 g/dL g/dL] (06/29/18 4:55 AM) (06/24/18 3:37 PM) RDW [11.5-14.5 %] 17.0 % 17.1 % *HI* *HI* (06/29/18 4:55 AM) (06/24/18 3:37 PM) MPV [7.4-10.4 fL] 7.5 fL 7.3 fL (06/29/18 4:55 AM) *LOW* (06/24/18 3:37 PM) Platelet [133-450 342 K/CMM 406 K/CMM K/CMM] (06/29/18 4:55 AM) (06/24/18 3:37 PM) Segs [45.0-75.0 %] 76.6 % 69.1 % *HI* (06/24/18 3:37 PM) (06/29/18 4:55 AM) Lymphocytes 13.2 % 19.4 % [20.0-40.0 %] *LOW* *LOW* (06/29/18 4:55 AM) (06/24/18 3:37 PM) Monocytes [2.0-12.0 9.3 % 9.1 % %] (06/29/18 4:55 AM) (06/24/18 3:37 PM) Eosinophils [0.0-4.0 0.5 % 1.1 % %] (06/29/18 4:55 AM) (06/24/18 3:37 PM) Basophils [0.0-1.0 0.4 % 1.3 % %] (06/29/18 4:55 AM) *HI* (06/24/18 3:37 PM) Neutrophils # 8.2 K/CMM 7.7 K/CMM [1.5-8.1 K/CMM] *HI* (06/24/18 3:37 PM) (06/29/18 4:55 AM) Lymphocytes # 1.4 K/CMM 2.2 K/CMM [1.0-5.5 K/CMM] (06/29/18 4:55 AM) (06/24/18 3:37 PM) Monocytes # [0.0-0.8 1.0 K/CMM 1.0 K/CMM K/CMM] *HI* *HI* (06/29/18 4:55 AM) (06/24/18 3:37 PM) Eosinophils # 0.1 K/CMM 0.1 K/CMM [0.0-0.5 K/CMM] (06/29/18 4:55 AM) (06/24/18 3:37 PM) Basophils # [0.0-0.2 0.2 K/CMM K/CMM] (06/24/18 3:37 PM) Microcyte [None 1+ 1+ Seen] *ABN* *ABN* (06/29/18 4:55 AM) (06/24/18 3:37 PM) Immunizations No data available for this section [...] Smoking C essation Counseling Yes entered on: 06/24/18 Assessment and Plan No data available for this section
--- OUTSIDE RECORDS SUMMARY | 2019-08-15 22:12 | XMS REPORT | Summary of Care ---
Author Author [facility] Organization [facility] Address Unknown Phone Unavailable Encounter [facility] [place]ODRICK) [id number] Date(s): 11/14/15 - 11/14/[address] [address]- Discharge Disposition: Home or Self Care Attending Physician: Jeffery Wu MD Admitting Physician: Jeffery Wu MD Vital Signs 1 2 3 Most recent to oldest [Reference Range]: 165.1 cm (11/14/15 9:50 AM) Height 97.0 DegF (11/14/15 4:00 PM) 98.1 DegF (11/14/15 9:00 AM) 98.0 DegF (11/14/15 5:36 AM) Temperature Oral [96.4-99.1 DegF] 112/69 mmHg (11/14/15 6:30 PM) 105/70 mmHg (11/14/15 5:00 PM) 108/73 mmHg (11/14/15 4:30 PM) Blood Pressure [90-140/60-90 mmHg] 16 BRMIN (11/14/15 6:30 PM) 16 BRMIN (11/14/15 5:00 PM) 16 BRMIN (11/14/15 4:30 PM) Respiratory Rate [14-20 BRMIN] 60 bpm (11/14/15 6:30 PM) 65 bpm (11/14/15 5:00 PM) 64 bpm (11/14/15 4:30 PM) Peripheral Pulse Rate [60-100 bpm] 96.364 kg (11/14/15 9:50 AM) 92.7 kg (11/14/15 5:36 AM) Weight 35.35 m2 (11/14/15 9:50 AM) Body Mass Index Problem List Condition Effective Dates Status Health Status Informan t Hx of laparoscopic Resolved adjustable gastric banding(Confirmed) Allergies, Adverse Reactions, Alerts Substance Reaction Severity Status NKDA Active Medications acetaminophen 650 mg, 20.3 mL, Route: PO, Drug form: LIQ, Q6H, Dosing Weight 96.364, kg, PRN P ain Score 1-3, Start date: 11/14/15 11:26:00 CDT, Duration: 30 day, Stop date: 11:25:00 CDT Notes: Max acetaminophen = 4000mg/day (4 gm/day). (Same as: Tylenol) Start Date: 11/14/15 Stop Date: 11/14/15 Status: Discontinued acetaminophen 650 mg, 1 supp, Route: AR, Drug form: SUPP, Q6H, Dosing Weight 96.364, kg, PRN F or Temp > 100.4 F, Start date: 11/14/15 11:26:00 CDT, Duration: 30 day, Stop date: 12/14/15 11:25:00 CDT Notes: Max acetaminophen = 4000 mg/day (4 gm/day). (Same as: Tylenol) Start Date: 11/14/15 Stop Date: 11/14/15 Status: Discontinued acetaminophen-hydrocodone 325 mg-7.5 mg/15 mL oral solution 15 mL, Route: PO, Drug Form: SOLN, Dosing Weight 96.364, kg, Q4H, PRN Pain Score 4-6, Start date: 11/14/15 11:26:00 CDT, Duration: 30 day, Stop date: 12/14/15 1:25:00 CDT Notes: Do not exceed 4gm/day of acetaminophen. (Same as: Flora 325/7.5) Start Date: 11/14/15 Stop Date: 11/14/15 Status: Discontinued Adderall XR 30 mg oral capsule, extended release 30 mg = 1 cap, PO, QID, 0 Refill(s) Start Date: 11/14/15 Status: Ordered ANES diphenhydrAMINE 12.5 mg, 0.25 mL, Route: IVP, Drug form: INJ, Q6H, Dosing Weight 96.364, kg, PRN Itching, Start date: 11/14/15 13:46:00 CDT, Duration: 30 day, Stop date: 13:45:00 CDT Notes: (Same as: Benadryl) Start Date: 11/14/15 Stop Date: 11/14/15 Status: Discontinued ANES fentaNYL 25 microgram, 0.5 mL, Route: IVP, Drug form: INJ, Q5Min, Dosing Weight 96.364, k g, PRN Pain Score 4-6, Start date: 11/14/15 13:46:00 CDT, Duration: 4 doses or t imes, Stop date: Limited # of times Notes: (Same as: Sublimaze) Preservative free. Start Date: 11/14/15 Stop Date: 11/14/15 Status: Discontinued ANES flumazenil 0.2 mg, 2 mL, Route: IVP, Drug form: INJ, PRN, Dosing Weight 96.364, kg, PRN Gabriel zodiazepine Reversal, Initial dose, Start date: 11/14/15 13:46:00 CDT, Duration: 30 day, Stop date: 12/14/15 13:45:00 CDT Notes: (Same as: Romazicon) Start Date: 11/14/15 Stop Date: 11/14/15 Status: Discontinued ANES HYDROmorphone 0.5 mg, 0.25 mL, Route: IVP, Drug form: INJ, Q5Min, Dosing Weight 96.364, kg, AR N Pain Score 7-10, Start date: 11/14/15 13:46:00 CDT, Duration: 4 doses or times , Stop date: Limited # of times Notes: (Same as: Dilaudid) Start Date: 11/14/15 Stop Date: 11/14/15 Status: Discontinued ANES ketOROLAC 30 mg, 1 mL, Route: IVP, Drug form: INJ, ONCE, Dosing Weight 96.364, kg, Start d ate: 11/14/15 13:46:00 CDT, Duration: 1 doses or times, Stop date: 11/14/15 13:4 6:00 CDT Notes: (Same as:Toradol) IV bolus must be given >15 seconds. Give IM administration slowly and deeply into the muscle.Not for use > 4 days MEDICATION WASTE Product Size: 30 mgProduct Wasted: ___ mg Start Date: 11/14/15 Stop Date: 11/14/15 Status: Discontinued ANES labetalol 10 mg, 2 mL, Route: IVP, Drug form: INJ, Q5Min, Dosing Weight 96.364, kg, PRN El evated BP, Start date: 11/14/15 13:46:00 CDT, Duration: 5 doses or times, Stop d ate: Limited # of times Notes: (Same as: Normodyne, Trandate)Push over 2 minutes Give bolus over 2-3 mi nutes. Start Date: 11/14/15 Stop Date: 11/14/15 Status: Discontinued ANES meperidine 12.5 mg, 0.25 mL, Route: IVP, Drug form: INJ, Q30Min, Dosing Weight 96.364, kg, PRN Other -See Comment, For shivering, Start date: 11/14/15 13:46:00 CDT, Durati on: 2 doses or times, Stop date: Limited # of times Notes: (Same As: Demerol) Start Date: 11/14/15 Stop Date: 11/14/15 Status: Discontinued ANES morphine Sulfate 2 mg, 1 mL, Route: IVP, Drug form: INJ, Q5Min, Dosing Weight 96.364, kg, PRN Jason n Score 4-6, Start date: 11/14/15 13:46:00 CDT, Duration: 5 doses or times, Stop date: Limited # of times Notes: (Same as:MORPhine Sulfate) Start Date: 11/14/15 Stop Date: 11/14/15 Status: Discontinued ANES naloxone 0.4 mg, 1 mL, Route: IVP, Drug form: INJ, Q2MIN, Dosing Weight 96.364, kg, PRN N arcotic Reversal, Start date: 11/14/15 13:46:00 CDT, Duration: 8 doses or times, Stop date: Limited # of times Notes: Same as Narcan Start Date: 11/14/15 Stop Date: 11/14/15 Status: Discontinued ANES ondansetron 4 mg, 2 mL, Route: IVP, Drug form: INJ, ONCE, Dosing Weight 96.364, kg, PRN Naus ea & Vomiting, Start date: 11/14/15 13:46:00 CDT Notes: (Same as: Lillian) MEDICATION WASTE Product Size: 4 mgProduct Was kelly: ___ mg Start Date: 11/14/15 Stop Date: 11/14/15 Status: Discontinued BD Normal Saline Flush 10 mL, Route: IVP, Drug Form: INJ, PRN, PRN Line Flush, Start date: 11/14/15 11: 34:00 CDT, Duration: 30 day, Stop date: 12/14/15 11:33:00 CDT Notes: (Same as: BD Posiflush) Start Date: 11/14/15 Stop Date: 11/14/15 Status: Discontinued BD Normal Saline Flush 5 mL, Route: IV, Drug Form: INJ, PRN, PRN Line Flush, Start date: 11/14/15 11:33 :00 CDT, Duration: 30 day, Stop date: 12/14/15 11:32:00 CDT Notes: (Same as: BD Posiflush) Start Date: 11/14/15 Stop Date: 11/14/15 Status: Discontinued enalapril 1.25 mg, 1 mL, Route: IVP, Drug form: INJ, Q6H, Dosing Weight 96.364, kg, PRN Hy pertension, Start date: 11/14/15 11:26:00 CDT, Duration: 30 day, Stop date: 03/30 11:25:00 CDT Notes: (Same as: Vasotec-IV) Start Date: 11/14/15 Stop Date: 11/14/15 Status: Discontinued Lactated Ringers 1,000 mL 1,000 mL, Rate: 80 ml/hr, Infuse over: 12.5 hr, Route: IV, Dosing Weight 96.364 kg, Total Volume: 1,000, Start date: 11/15/15 9:00:00 CDT, Duration: 30 day, Sto p date: 12/15/15 8:59:00 CDT Start Date: 11/15/15 Stop Date: 11/14/15 Status: Canceled Lactated Ringers 1,000 mL 1,000 mL, Rate: 125 ml/hr, Infuse over: 8 hr, Route: IV, Dosing Weight 96.364 kg , Total Volume: 1,000, Start date: 11/14/15 11:26:00 CDT, Stop date: 11/15/15 9: 00:00 CDT Start Date: 11/14/15 Stop Date: 11/14/15 Status: Discontinued Latuda 60 mg, PO, Daily, 0 Refill(s) Start Date: 11/14/15 Status: Ordered metoprolol 5 mg/5 ml INJ 2.5 mg, 2.5 mL, Route: IVP, Drug form: INJ, Q6H, Dosing Weight 96.364, kg, PRN H ypertension, Start date: 11/14/15 11:26:00 CDT, Duration: 30 day, Stop date: 03/30 11:25:00 CDT Notes: (Same as: Lopressor)Push over 2 minutes Start Date: 11/14/15 Stop Date: 11/14/15 Status: Discontinued morphine Sulfate 4 mg, 1 mL, Route: IVP, Drug form: INJ, ONCE, Dosing Weight 92.7, kg, Priority: STAT, Start date: 11/14/15 5:53:00 CDT, Stop date: 11/14/15 5:53:00 CDT Notes: (Same as:MORPhine Sulfate) Start Date: 11/14/15 Stop Date: 11/14/15 Status: Completed NS + KCL 20mEq/L 1000ml (Premix) 1,000 mL 1,000 mL, Rate: 125 ml/hr, Infuse over: 8 hr, Route: IV, Dosing Weight 92.7 kg, Total Volume: 1,000, Start date: 11/14/15 8:31:00 CDT, Duration: 30 day, Stop da te: 12/14/15 8:30:00 CDT Notes: PREMIX IV - Do Not AlterWASTE: F/P - Sink; E - Municipal Trash Bin Start Date: 11/14/15 Stop Date: 11/14/15 Status: Discontinued ondansetron 4 mg, 2 mL, Route: IVP, Drug form: INJ, ONCE, Dosing Weight 92.7, kg, Priority: STAT, Start date: 11/14/15 5:53:00 CDT, Stop date: 11/14/15 5:53:00 CDT Notes: (Same as: Lillian) MEDICATION WASTE Product Size: 4 mgProduct Was kelly: ___ mg Start Date: 11/14/15 Stop Date: 11/14/15 Status: Completed pantoprazole + sodium chloride 0.9% 10 ml INJ (PF) 10 mL 40 mg, Route: IVP, ONCE, Dosing Weight 92.7, kg, Priority: STAT, Start date: 03/30 6:50:00 CDT, Stop date: 11/14/15 6:50:00 CDT Notes: For IV push reconstitute with 10 ml 0.9% sodium chloride and push over 2 minutes. (Same as: Protonix) Start Date: 11/14/15 Stop Date: 11/14/15 Status: Completed potassium chloride 10 mEq, 100 mL, Route: IVPB, Drug form: INJ, Q1H, Dosing Weight 92.7, kg, Total Dose = 20 meq, Start date: 11/14/15 9:00:00 CDT, Duration: 2 doses or times, Sto p date: 11/14/15 10:00:00 CDT, Peripheral Line Notes: Infuse at a rate of 10 mEq/hr.(Same as: KCL) Start Date: 11/14/15 Stop Date: 11/14/15 Status: Completed potassium chloride 10 mEq, 100 mL, Route: IVPB, Drug form: INJ, Q1H, Dosing Weight 92.7, kg, Total Dose = 20 meq, Start date: 11/14/15 8:00:00 CDT, Duration: 2 doses or times, Sto p date: 11/14/15 9:00:00 CDT, Peripheral Line Notes: Infuse at a rate of 10 mEq/hr.(Same as: KCL) Start Date: 11/14/15 Stop Date: 11/14/15 Status: Completed potassium chloride 20 mEq/100 mL intravenous solution 20 mEq, Route: IVPB, ONCE, Dosing Weight 92.7, kg, Priority: STAT, Start date: 0 11/14/15 7:05:00 CDT, Stop date: 11/14/15 7:05:00 CDT Start Date: 11/14/15 Stop Date: 11/14/15 Status: Discontinued promethazine 12.5 mg, 0.5 mL, Route: IM, Drug form: INJ, Q4H, Dosing Weight 96.364, kg, PRN N ausea & Vomiting, Start date: 11/14/15 11:26:00 CDT, Duration: 30 day, Stop date: 12/14/15 11:25:00 CDT Notes: Do not give IV push. (Same as: Phenergan) Start Date: 11/14/15 Stop Date: 11/14/15 Status: Discontinued Saline Flush 0.9% 10 mL, Route: IVP, Drug Form: INJ, Dosing Weight 92.7, kg, PRN, PRN Line Flush, Start date: 11/14/15 5:53:00 CDT, Duration: 30 day, Stop date: 12/14/15 5:52:00 CDT Notes: (Same as: BD Posiflush) Start Date: 11/14/15 Stop Date: 11/14/15 Status: Discontinued Sodium Chloride 0.9% (Bolus) IV 1,000 mL, 1000 ml/hr, Infuse Over: 1 hr, Route: IV, 1,000, Drug form: INJ, ONCE, Priority: STAT, Dosing Weight 92.7 kg, Start date: 11/14/15 6:49:00 CDT, Stop d ate: 11/14/15 6:49:00 CDT Start Date: 11/14/15 Stop Date: 11/14/15 Status: Completed Sodium Chloride 0.9% (Bolus) IV 1,000 mL, 2,000 ml/hr, Infuse Over: 30 minutes, Route: IV, 1,000, Drug form: INJ , ONCE, Priority: STAT, Dosing Weight 92.7 kg, Start date: 11/14/15 5:53:00 CDT, Duration: 1 doses or times, Stop date: 11/14/15 5:53:00 CDT Start Date: 11/14/15 Stop Date: 11/14/15 Status: Completed Sodium Chloride 0.9% IV 25 mL, Route: IVP, Start date: 11/14/15 11:34:00 CDT, Duration: 30 day, Stop brii e: 12/14/15 11:33:00 CDT, PRN Line Flush Start Date: 11/14/15 Stop Date: 11/14/15 Status: Discontinued Trintellix 10 mg oral tablet 10 mg = 1 tab, PO, Daily, 0 Refill(s) Start Date: 11/14/15 Status: Ordered Xanax 2 mg oral tablet 2 mg = 1 tab, PO, QID, 0 Refill(s) Start Date: 11/14/15 Status: Ordered Results ELECTROLYTES Most recent to 1 oldest [Reference Range]: Sodium Lvl [135-145 137 mEq/L mEq/L] (11/14/15 6:10 AM) Potassium Lvl 2.7 mEq/L 1 [3.5-5.1 mEq/L] *CRIT* (11/14/15 6:10 AM) Chloride Lvl [95-109 95 mEq/L mEq/L] (11/14/15 6:10 AM) CO2 [24-32 mEq/L] 29 mEq/L (11/14/15 6:10 AM) AGAP [10.0-20.0 15.7 mEq/L mEq/L] (11/14/15 6:10 AM) 1Result Comment: Critical Result(s) called to Mala Estrada at 11/14/2015 06:35 by hy. Read back OK. CHEM PANEL Most recent to 1 oldest [Reference Range]: Creatinine Lvl 0.86 mg/dL [0.50-1.40 mg/dL] (11/14/15 6:10 AM) eGFR 80 mL/min/1.73m2 1 *NA* (11/14/15 6:10 AM) BUN [7-22 mg/dL] 22 mg/dL (11/14/15 6:10 AM) B/C Ratio [6-25] 26 *HI* (11/14/15 6:10 AM) Glucose Lvl [70-99 159 mg/dL mg/dL] *HI* (11/14/15 6:10 AM) Total Protein 7.9 g/dL [6.4-8.4 g/dL] (11/14/15 6:10 AM) Albumin Lvl [3.5-5.0 3.7 g/dL g/dL] (11/14/15 6:10 AM) Globulin [2.7-4.2 4.2 g/dL g/dL] (11/14/15 6:10 AM) A/G Ratio [0.7-1.6] 0.9 (11/14/15 6:10 AM) Calcium Lvl 9.1 mg/dL [8.5-10.5 mg/dL] (11/14/15 6:10 AM) ALT [0-65 unit/L] 26 unit/L (11/14/15 6:10 AM) AST [0-37 unit/L] 17 unit/L (11/14/15 6:10 AM) Alk Phos [39-136 72 unit/L unit/L] (11/14/15 6:10 AM) Bili Total [0.2-1.3 0.9 mg/dL mg/dL] (11/14/15 6:10 AM) Lipase Lvl [73-393 301 unit/L unit/L] (11/14/15 6:10 AM) 1Result Comment: The eGFR is calculated using [...] be mul tiplied by the estimated BMI. HEMATOLOGY Most recent to 1 oldest [Reference Range]: WBC [3.7-10.4 K/CMM] 10.1 K/CMM (11/14/15 6:10 AM) RBC [4.20-5.40 5.55 M/CMM M/CMM] *HI* (11/14/15 6:10 AM) Hgb [12.0-16.0 g/dL] 14.7 g/dL (11/14/15 6:10 AM) Hct [36.0-48.0 %] 43.9 % (11/14/15 6:10 AM) MCV [80.0-98.0 fL] 79.1 fL *LOW* (11/14/15 6:10 AM) MCH [27.0-31.0 pg] 26.5 pg *LOW* (11/14/15 6:10 AM) MCHC [32.0-36.0 33.5 g/dL g/dL] (11/14/15 6:10 AM) RDW [11.5-14.5 %] 15.8 % *HI* (11/14/15 6:10 AM) Platelet [133-450 449 K/CMM K/CMM] (11/14/15 6:10 AM) MPV [7.4-10.4 fL] 8.2 fL (11/14/15 6:10 AM) Segs [45.0-75.0 %] 66.2 % (11/14/15 6:10 AM) Lymphocytes 20.3 % [20.0-40.0 %] (11/14/15 6:10 AM) Monocytes [2.0-12.0 8.8 % %] (11/14/15 6:10 AM) Eosinophils [0.0-4.0 3.9 % %] (11/14/15 6:10 AM) Basophils [0.0-1.0 0.8 % %] (11/14/15 6:10 AM) Segs-Bands # 6.7 K/CMM [1.5-8.1 K/CMM] (11/14/15 6:10 AM) Lymphocytes # 2.1 K/CMM [1.0-5.5 K/CMM] (11/14/15 6:10 AM) Monocytes # [0.0-0.8 0.9 K/CMM K/CMM] *HI* (11/14/15 6:10 AM) Eosinophils # 0.4 K/CMM [0.0-0.5 K/CMM] (11/14/15 6:10 AM) Basophils # [0.0-0.2 0.1 K/CMM K/CMM] (11/14/15 6:10 AM) Microcyte [None 1+ Seen] *ABN* (11/14/15 6:10 AM) Immunizations No data available for this section Procedures No data available for this section Social History Social History Type Response Smoking Status Never smoker; Ready to villaseñor ge: No; Concerns about tobacco use in household: No; Exposure to Tobacco Smoke None; Cig arette Smoking Last 365 Days No; Reg Smoking Cessation Counseling No Assessment and Plan No data available for this section
--- OUTSIDE RECORDS SUMMARY | 2019-08-15 22:12 | XMS REPORT | Continuity of Care Document ---
Author Author [facility], [facility] [employer] Address Unknown Phone Unavailable Care Team Providers Care Director Of Officiating Name Role Phone [facility] Information [facility] Unavailable Un available Problems Problem Status Onset Date Classification Date Reported Comments Source SIDE PAIN/BACK PAIN Active 09/30/[address] [facility] N/V, URETEROLITHIASIS, HYDRONEPHROSIS CO Active 09/30/[address] [facility] E66.01,MORBID OBESITY Active 05/31/[address] [facility] ACUTE N/V; SLIPPED LAP BAND Ac tive 11/14/[address] [facility] LAPBAND ISSUE , ABD PAIN, CANT EAT Active 11/14/[address] [facility] History of laparoscopic adjustable gastr ic banding (situation) Resolved Pr oblem 10/03/[address] [facility] Morbid (severe) obesity due to excess calories 07/01/[address] [facility] Anxiety (finding) Active Problem 10/03/[address] [facility] Gastroesophageal reflux disease (disorder) Active Problem 10/03/[address] [facility] Hypertensive disorder, systemic arterial (disorder) Active Problem 10/03/[address] [facility] Morbid obesity (disorder) Acti ve Problem 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 Medications Medication Details Route Status Patient Instructions Ordering Provider Order Date Source Flomax Notes: (Same As: Flomax ) "Do Not Crush" No Longer Active 10/02/[address] [facility] Protonix Notes: Tablet should not be chewed or crushed. (Same as: Protonix) Inactive 10/01/[address] [facility] tamsulosin 0.4 mg oral capsule 0.4 mg = 1 cap, PO, After Breakfast, # 30 cap, 0 Refill(s), Pharmacy: [id number] Active 10/01/[address] [facility] Acetaminophen 300 MG / Codeine Phosphate 30 MG Oral Tablet [Tylenol with Codeine #3] 1 - 2 tab, PO, Q4H, PRN Pain, X 2 day, # 20 tab, 0 Refill(s) No Longer Active 10/01/[address] [facility] tamsulosin 0.4 mg oral capsule 0.4 mg = 1 cap, PO, After Breakfast, 0 Refill(s) Inactiv e 10/01/[address] [facility] Ondansetron 4 MG Oral Tablet [Zofran] 4 mg = 1 tab, PO, Q8H, PRN Nausea/vomiting, # 30 tab, 0 Refill(s), Pharmacy: [id number] Active 10/01/[address] [facility] POLYETHYLENE GLYCOL 3350 Notes : Dissolve in 8 oz of water or juice. (Same as: Miralax) Inactive 10/01/[address] [facility] pantoprazole 40 mg, Route: IV, Daily, Dosing Weight 99.545, kg, Start date: 10/01/18 9:00:00 CDT, Duration: 30 day, Stop date: 10/30/18 9:00:00 CDT Inactive 10/01/[address] [facility] Hydrochlorothiazide 25 MG Oral Tablet Notes: (Same as: Hydrodiuril) With food. Inactive 10/01/[address] [facility] Adderall XR 30 mg, Route: PO, Drug form: ERCAP, BID, Dosing Weight 99.545, kg, Start date: 10/01/18 9:00:00 CDT, Duration: 30 day, Stop date: 10/30/18 17:00:00 CDT Inactive 10/01/[address] [facility] Alprazolam 2 MG Oral Tablet No julia: With food or milk (Same as: Xanax) Inactive 10/01/[address] [facility] Enoxaparin Notes: (Same as: Lo venox) Inactive 10/01/[address] [facility] Calcium Gluconate Notes: WASTE : F/P - Sink; E - Municipal Trash Bin Inactive 10/01/[address] [facility] Magnesium Oxide Notes: (Same a s: Mag-Ox 400) Magnesium oxide [id number] elemental magnesium Dose=____mg magnesium oxide (___mg elemental magnesium) Inactive 10/01/[address] [facility] Magnesium Sulfate Notes: WASTE : F/P - Sink; E - Municipal Trash Bin Inactive 10/01/[address] [facility] sodium phosphate Notes: Infuse over 4 hour. Do not infuse phosphorous concurrently in the same line as TPN or IVF that contains calcium. For double lumen central lines, phosphorous may be infused in a separate lumen from TPN. Inactive 10/01/[address] [facility] potassium phosphate Notes: (Sa me as: K Phosphate.) Do not infuse phosphorous concurrently in the same line as TPN or IVF that contains calcium. For double lumen central lines, phosphorous may be infused in a separate lumen from TPN. 1 mMol phoshate has 1.47 mEq potassium Infuse over 4 hours Inactive 10/01/[address] [facility] Potassium Chloride Notes: ([facility] as: K-Dur 20) "Do Not Crush" Give with food and full glass of water For patients unable to swallow tablet, dissolve in one half glass of water. Allow about 2 minutes for the tab lets to disintegrate. Stir before giving to prepare slurry and administer. Please exclude Patients with feeding tube less than 14 [place] (Dobhoff, J-tube etc) and pediatric and patients. Inactive 10/01/[address] [facility] potassium phosphate-sodium phosphate 250 mg-280 mg-160 mg oral powder for reconstitution Notes: (Same as: Phos-NaK) Each 1.5 gm pkt has 250mg phosphorous. Mix w/2.5oz water and stir. Inactive 10/01/[address] [facility] Potassium Chloride Notes: Infu se at a rate of 10 mEq/hr. (Same as: KCL) Inactive 10/01/[address] [facility] Potassium Chloride Notes: ([facility] as: K-Dur 20) "Do Not Crush" Give with food and full glass of water For patients unable to swallow tablet, dissolve in one half glass of water. Allow about 2 minutes for the tab lets to disintegrate. Stir before giving to prepare slurry and administer. Please exclude Patients with feeding tube less than 14 Slov[place] (Dobhoff, J-tube etc) and pediatric and patients. Inactive 10/01/[address] [facility] Trazodone Notes: (Same As: Carlos A mathew) Inactive 10/01/[address] [facility] Alprazolam 2 MG Oral Tablet 1 mg = 0.5 tab, PO, BID Active 10/01/[address] [facility] Hydralazine 10 mg, Route: IVP, ONCE, Dosing Weight 99.545, kg, Priority: STAT, Start date: 09/30/18 23:10:00 CDT, Stop date: 09/30/18 23:10:00 CDT Inactive 10/01/[address] [facility] Potassium Chloride Notes: Infu se at a rate of 10 mEq/hr. (Same as: KCL) No Longer Active 10/01/[address] [facility] Morphine Notes: (Same as:MORPh ine Sulfate) No Longer Active 10/01/[address] [facility] Acetaminophen Notes: Do not ex ceed 4 gm/day. (Same as: Tylenol) No Longer Active 10/01/[address] [facility] Saline Flush 0.9% Notes: (Same as: BD Posiflush) No Longer Active 10/01/[address] [facility] Ondansetron 8 mg, Route: IVP, Q8H, Dosing Weight 99.545, kg, PRN Nausea & Vomiting, Start date: 09/30/18 22:54:00 CDT, Duration: 30 day, Stop date: 10/30/18 22:53:00 CDT No Longer Active 10/01/[address] [facility] Reglan Notes: (Same as: Reglan) No Longer Active 10/01/[address] [facility] Dextrose 50% Syringe 12.5 gm, 25 mL, Route: IVP, Drug Form: INJ, Dosing Weight 99.545, kg, PRN, PRN Blood Glucose Results, Start date: 09/30/18 22:54:00 CDT, Duration: 30 day, Stop date: 10/30/18 22:53:00 CDT, 0 No Longer Active 10/01/[address] [facility] Glucagon 1 mg, Route: IM, Drug form: PDR/INJ, PRN, Dosing Weight 99.545, kg, PRN Blood Glucose Results, Start date: 09/30/18 22:54:00 CDT, Duration: 30 day, Stop date: 10/30/18 22:53:00 CDT, 0 No Longer Active 10/01/[address] [facility] Sodium Chloride 0.9% IV 984.8 mL + M.V.I .-12 10 mL Daily + folic acid IV 1 mg Daily + thiamine IV 5 984.8 mL, Rate: 500 ml/hr, Infuse over: 2 hr, Route: IV, Dosing Weight 99.545 kg, Total Volume: 1,000 mL, Priority: STAT, Start date: 09/30/18 21:12:00 CDT, Duration: 1 doses or times, Stop date: 09/30/18 23:11:00 CDT, 2.1, m2, 0 Inactive 10/01/[address] [facility] Saline Flush 0.9% Notes: (Same as: BD Posiflush) No Longer Active 10/01/[address] [facility] Sodium Chloride 0.9% IV 1,000 mL 1,000 mL, Rate: 125 ml/hr, Infuse over: 8 hr, Route: IV, Dosing Weight 99.545 kg, Total Volume: 1,000, Start date: 09/30/18 21:12:00 CDT, Duration: 30 day, Stop date: 10/30/18 21:11:00 CDT, 2.1, m2, 0 No Longer Active 10/01/[address] [facility] Metoclopramide Notes: (Same as : Reglan) Inactive 10/01/[address] [facility] Famotidine Notes: (Same as: Pe pcid) Can be dilute in 5- 10cc NS IVP: Slow IV push over at least 2 minutes. Inactive 10/01/[address] [facility] Morphine Notes: (Same as:MORPh ine Sulfate) Inactive 10/01/[address] [facility] Saline Flush 0.9% Notes: (Same as: BD Posiflush) Inactive 09/30/[address] [facility] tramadol hydrochloride 50 MG Oral Tablet Notes: Not to exceed 400mg/day. (Same As: Ultram) Inactive 06/29/[address] [facility] heparin sodium, porcine 2500 UNT/ML Injectable Solutio n Notes: porcine heparin No Longer Active 06/29/[address] [facility] Famotidine Notes: (Same as: Pe pcid) Can be dilute in 5- 10cc NS IVP: Slow IV push over at least 2 minutes. No Longer Active 06/29/[address] [facility] Ativan Notes: (Same as: Ativan) No Longer Active 06/28/[address] [facility] glycopyrrolate (ANES) Route: I V, Drug form: INJ, ONCE, Stop date: 06/28/18 9:31:00 CDT Inactive 06/28/[address] [facility] ketOROLAC (ANES) IV, ONCE Inactive 06/28/[address] [facility] neostigmine (ANES) Route: IV, Drug form: INJ, ONCE, Stop date: 06/28/18 9:31:00 CDT Inactive 06/28/[address] [facility] 1/2NS + KCL 20mEq/L 1000ml (Premix) 1,000 mL Notes: PREMIX IV - Do Not Alter WASTE: F/P - Sink; E - Municipal Trash Bin No Longer Active 06/28/[address] [facility] Saline Flush 0.9% Notes: prese rvative free. No Longer Active 06/28/[address] [facility] ketOROLAC 30 mg/mL injectable solution 4 days MEDICATION WASTE Product Size: 30 mg Product Wasted: ___ mg No Longer Active 06/28/[address] [facility] Ofirmev Notes: Infuse over 15 minutes Do not exceed 4gm/day of acetaminophen MEDICATION WASTE Product Size: 1000 mg Product Wasted: ___ mg No Longer Active 06/28/[address] [facility] Morphine Notes: (Same as:MORPh ine Sulfate) No Longer Active 06/28/[address] [facility] Demerol HCl Notes: (Same as: Juan emerol) "Use Precaution in Elderly, Seizure disorders, and Renal impairment" No Longer Active 06/28/[address] [facility] enalaprilat Notes: (Same as: V asotec-IV) No Longer Active 06/28/[address] [facility] Metoprolol Notes: (Same as: Lo pressor) Push over 2 minutes No Longer Active 06/28/[address] [facility] Promethazine Notes: Do not giv e IV push. (Same as: Phenergan) No Longer Active 06/28/[address] [facility] Ketorolac 30 mg, Route: IVPBehzad RN, Dosing Weight 109.545, kg, PRN Pain Score 1-5, PRN q 6 hrs, Start date: 06/28/18 9:16:00 CDT, Duration: 6 doses or times, Stop date: Limited # of times Inactive 06/28/[address] [facility] Ondansetron Notes: (Same as: Aron lord) MEDICATION WASTE Product Size: 4 mg Product Wasted: ___ mg No Longer Active 06/28/[address] [facility] ePHEDrine (ANES) Route: IV, Dr chan form: INJ, ONCE, Stop date: 06/28/18 9:02:00 CDT Inactive 06/28/[address] [facility] albuterol (ANES) Route: ENDOTR ACHEAL, Drug form: AERO/A, ONCE, Stop date: 06/28/18 8:47:00 CDT Inactive 06/28/[address] [facility] dexamethasone (ANES) Route: IV , Drug form: INJ, ONCE, Stop date: 06/28/18 8:32:00 CDT Inactive 06/28/[address] [facility] acetaminophen (ANES) Route: IV , Drug form: INJ, ONCE, Stop date: 06/28/18 8:32:00 CDT Inactive 06/28/[address] [facility] fentaNYL (ANES) Route: IV, Migue g form: INJ, ONCE, Stop date: 06/28/18 8:32:00 CDT Inactive 06/28/[address] [facility] midazolam (ANES) Route: IV, Dr ug form: SOLN, ONCE, Stop date: 06/28/18 8:32:00 CDT Inactive 06/28/[address] [facility] rocuronium (ANES) Route: IV, D rug form: INJ, ONCE, Stop date: 06/28/18 8:32:00 CDT Inactive 06/28/[address] [facility] propofol (ANES) Route: IV, Migue g form: INJ, ONCE, Stop date: 06/28/18 8:32:00 CDT Inactive 06/28/[address] [facility] lidocaine (ANES) Route: IV, Dr ug form: INJ, ONCE, Stop date: 06/28/18 8:32:00 CDT Inactive 06/28/[address] [facility] ondansetron (ANES) Route: IV, Drug form: INJ, ONCE, Stop date: 06/28/18 8:32:00 CDT Inactive 06/28/[address] [facility] succinylcholine (ANES) Route: IV, Drug form: INJ, ONCE, Stop date: 06/28/18 8:28:00 CDT Inactive 06/28/[address] [facility] ceFAZolin (ANES) Route: IV, Dr ug form: INJ, ONCE, Stop date: 06/28/18 8:28:00 CDT Inactive 06/28/[address] [facility] Hydralazine Notes: (Same as: A presoline) Push over 5 minutes Inactive 06/28/[address] [facility] Hydromorphone Notes: Same as D ilaudid Inactive 06/28/[address] [facility] Naloxone Notes: Same as Narcan Inactive 06/28/[address] [facility] Flumazenil Notes: (Same as: Ro mazicon) Inactive 06/28/[address] [facility] Labetalol Notes: (Same as: Carlos modyne, Trandate) Push over 2 minutes Give bolus over 2-3 minutes. Inactive 06/28/[address] [facility] Morphine Notes: (Same as:MORPh ine Sulfate) Inactive 06/28/[address] [facility] Promethazine Notes: Do not giv e IV push. (Same as: Phenergan) Inactive 06/28/[address] [facility] Albuterol 0.83 MG/ML Inhalant Solution Notes: SEE RT DOCUMENTATION (Same as: Proventil) Inactive 06/28/[address] [facility] Ondansetron Notes: (Same as: Aron lord) MEDICATION WASTE Product Size: 4 mg Product Wasted: ___ mg Inactive 06/28/[address] [facility] Diphenhydramine Notes: (Same a s: Benadryl) Inactive 06/28/[address] [facility] Meperidine Notes: (Same as: Ayers) "Use Precaution in Elderly, Seizure disorders, and Renal impairment" Inactive 06/28/[address] [facility] Lactated Ringers Injection IV (ANES) 1000 mL Route: IV, Total Volume: 1,000, Start date: 06/28/18 7:38:00 CDT, Stop date: 06/28/18 8:38:00 CDT Inactive 06/28/[address] [facility] ceFAZolin + sterile water 20 mL Notes: (Same As: Alvaro Luis) MEDICATION WASTE Product Size: 1000 mg Product Wasted: ___ mg No Longer Active 06/28/[address] [facility] heparin Notes: porcine heparin No Longer Active 06/28/[address] [facility] Hydrochlorothiazide 25 MG Oral Tablet 25 mg = 1 tab, PO, Daily, # 30 tab, 0 Refill(s) Active 06/24/[address] [facility] Hydroxyzine 10 mg, PO, frequen cy unknown, 0 Refill(s) Active 06/24/[address] [facility] trazodone 150 mg oral tablet 1 50 mg = 1 tab, PO, Bedtime, # 30 tab, 0 Refill(s) Active 06/24/[address] [facility] ibuprofen 800 mg oral tablet 8 00 mg = 1 tab, PO, TID, PRN Pain, # 90 tab, 0 Refill(s) No Longer Active 06/24/[address] [facility] Lactated Ringers 1,000 mL 1,00 0 mL, Rate: 80 ml/hr, Infuse over: 12.5 hr, Route: IV, Dosing Weight 96.364 kg, Total Volume: 1,000, Start date: 11/15/15 9:00:00 CDT, Duration: 30 day, Stop date: 12/15/15 8:59:00 CDT No Longer Active 11/15/[address] [facility] Flumazenil Notes: (Same as: Ro mazicon) Inactive 11/14/[address] [facility] Diphenhydramine Notes: (Same a s: Benadryl) Inactive 11/14/[address] [facility] Naloxone Notes: Same as Narcan Inactive 11/14/[address] [facility] Meperidine Notes: (Same As: De merol) Inactive 11/14/[address] [facility] Ondansetron Notes: (Same as: Aron lord) MEDICATION WASTE Product Size: 4 mg Product Wasted: ___ mg Inactive 11/14/[address] [facility] Ketorolac 4 days MEDICA TION WASTE Product Size: 30 mg Product Wasted: ___ mg Inactive 11/14/[address] [facility] Labetalol Notes: (Same as: Carlos moore Trandate) Push over 2 minutes Give bolus over 2-3 minutes. Inactive 11/14/[address] [facility] Morphine Notes: (Same as:MORPh ine Sulfate) Inactive 11/14/[address] [facility] Hydromorphone Notes: (Same as: Dilaudid) Inactive 11/14/[address] [facility] Fentanyl Notes: (Same as: Subl imaze) Preservative free. Inactive 11/14/[address] [facility] BD Normal Saline Flush Notes: (Same as: BD Posiflush) Inactive 11/14/[address] [facility] Sodium Chloride 0.9% IV 25 mL, Route: IVP, Start date: 11/14/15 11:34:00 CDT, Duration: 30 day, Stop date: 12/14/15 11:33:00 CDT, PRN Line Flush Inactive 11/14/[address] [facility] BD Normal Saline Flush Notes: (Same as: BD Posiflush) Inactive 11/14/[address] [facility] Acetaminophen Notes: Max aceta minophen = 4000mg/day (4 gm/day). (Same as: Tylenol) Inactive 11/14/[address] [facility] Acetaminophen 21.7 MG/ML / Hydrocodone B itartrate 0.67 MG/ML Oral Solution Notes: Do not exceed 4gm/day of acetamin ophen. (Same as: Elrama 325/7.5) Inactive 11/14/[address] [facility] Metoprolol Notes: (Same as: Lo pressor) Push over 2 minutes Inactive 11/14/[address] [facility] Promethazine Notes: Do not giv e IV push. (Same as: Phenergan) Inactive 11/14/[address] [facility] enalapril Notes: (Same as: Vas otec-IV) Inactive 11/14/[address] [facility] Calcium Chloride 0.0014 MEQ/ML / Potassi um Chloride 0.004 MEQ/ML / Sodium Chloride 0.103 MEQ/ML / Sodium Lactate 0.028 MEQ/ML Injectable Solution 1,000 mL, Rate: 125 ml/hr, Infuse over: 8 hr, Route: IV, Dosing Weight 96.364 kg, Total Volume: 1,000, Start date: 11/14/15 11:26:00 CDT, Stop date: 11/15/15 9:00:00 CDT Inactive 11/14/[address] [facility] potassium chloride Notes: Infu se at a rate of 10 mEq/hr. (Same as: KCL) Inactive 11/14/[address] [facility] Latuda 60 mg, PO, Daily, 0 Ref ill(s) Active 11/14/[address] [facility] Trintellix 10 mg oral tablet 1 0 mg = 1 tab, PO, Daily, 0 Refill(s) Active 11/14/[address] [facility] Alprazolam 2 MG Oral Tablet [Xanax] 2 mg = 1 tab, PO, QID, 0 Refill(s) Active 11/14/[address] [facility] 24 HR Amphetamine aspartate 7.5 MG / Amp hetamine Sulfate 7.5 MG / Dextroamphetamine saccharate 7.5 MG / Dextroamphetamine Sulfate 7.5 MG Extended Release Capsule [Adderall] 30 mg = 1 cap, PO, QID, 0 Refill(s) Active 11/14/[address] [facility] NS + KCL 20mEq/L 1000ml (Premix) 1,000 mL Notes: PREMIX IV - Do Not Alter WASTE: F/P - Sink; E - Municipal Trash Bin Inactive 11/14/[address] [facility] potassium chloride Notes: Infu se at a rate of 10 mEq/hr. (Same as: KCL) Inactive 11/14/[address] [facility] potassium chloride 20 mEq/100 mL intravenous solution 20 mEq, Route: IVPB, ONCE, Dosing Weight 92.7, kg, Priority: STAT, Start date: 11/14/15 7:05:00 CDT, Stop date: 11/14/15 7:05:00 CDT Inactive 11/14/[address] [facility] pantoprazole Notes: For IV pus h reconstitute with 10 ml 0.9% sodium chloride and push over 2 minutes. (Same as: Protonix) Inactive 11/14/[address] [facility] Sodium Chloride 0.154 MEQ/ML Injectable Solution 1,000 mL, 1000 ml/hr, Infuse Over: 1 hr, Route: IV, 1,000, Drug form: INJ, ONCE, Priority: STAT, Dosing Weight 92.7 kg, Start date: 11/14/15 6:49:00 CDT, Stop date: 11/14/15 6:49:00 CDT Inactive 11/14/[address] [facility] Ondansetron Notes: (Same as: Aron lord) MEDICATION WASTE Product Size: 4 mg Product Wasted: ___ mg Inactive 11/14/[address] [facility] Morphine Notes: (Same as:MORPh ine Sulfate) Inactive 11/14/[address] [facility] Sodium Chloride 0.154 MEQ/ML Injectable Solution 1,000 mL, 2,000 ml/hr, Infuse Over: 30 minutes, Route: IV, 1,000, Drug form: INJ, ONCE, Priority: STAT, Dosing Weight 92.7 kg, Start date: 11/14/15 5:53:00 CDT, Duration: 1 doses or times, Stop date: 11/14/15 5:53:00 CDT Inactive 11/14/[address] [facility] Saline Flush 0.9% Notes: (Same as: BD Posiflush) Inactive 11/14/[address] [facility] Allergies, Adverse Reactions, Alerts Substance Category Reaction Severity Reaction type Status Date Reported Comments Source Latex Assertion Drug allergy Active [facility] Grass Assertion Drug allergy Active [facility] Immunizations No Data Provided for This Section Results Order Name Results Value Reference Range Date Interpretation Comments Source CHEM PANEL B/C Ratio 10 6 - 25 10/01/[address] [facility] CHEM PANEL A/G Ratio 0.8 0.7 - 1.6 10/01/[address] [facility] CHEM PANEL Globulin 3.6 2.7 - 4.2 10/01/[address] [facility] [facility] CHEM PANEL Chloride Lvl 107 95 - 109 10/01/[address] [facility] CHEM PANEL AGAP 11.0 10.0 - 20.0 10/01/[address] [facility] CHEM PANEL Potassium Lvl 3.0 3.5 - 5.1 10/01/2018 Result Comment: Critical Result(s) alis lundberg to Sean Dalton at 10/01/2018 05:46 by CL. Read back OK. [facility] CHEM PANEL Sodium Lvl 143 135 - 145 10/01/[address] [facility] CHEM PANEL Alk Phos 135 39 - 136 10/01/[address] [facility] CHEM PANEL Albumin Lvl 3.0 3.5 - 5.0 10/01/[address] [facility] CHEM PANEL BUN 8 7 - 22 10/01/[address] [facility] CHEM PANEL CO2 28 24 - 32 10/01/[address] [facility] CHEM PANEL Glucose Lvl 111 70 - 99 10/01/[address] [facility] CHEM PANEL eGFR 83 10/01/2018 Result Comment: The eGFR is calculated using the [...] from the National Kidney Disease Education Program (NKDEP) which additionally recommends that when the eGFR is used in patients with extremes of body mass index for purposes of drug dosing, the eGFR should be multiplied by the estimated BMI. [facility] CHEM PANEL ALT 78 0 - 65 10/01/[address] [facility] CHEM PANEL AST 119 0 - 37 10/01/[address] [facility] CHEM PANEL Creatinine Lvl 0.82 0.50 - 1.40 10/01/[address] [facility] CHEM PANEL Bili Total 0.5 0.2 - 1.3 10/01/[address] [facility] CHEM PANEL Total Protein 6.6 6.4 - 8.4 10/01/[address] [facility] CHEM PANEL Calcium Lvl 8.6 8.5 - 10.5 10/01/[address] [facility] HEMATOLOGY RDW 17.8 11.5 - 14.5 10/01/[address] [facility] HEMATOLOGY RBC 4.42 4.20 - 5.40 10/01/[address] [facility] HEMATOLOGY Hgb 9.3 12.0 - 16.0 10/01/[address] [facility] HEMATOLOGY Hct 30.5 36.0 - 48.0 10/01/[address] [facility] HEMATOLOGY WBC 9.5 3.7 - 10.4 10/01/[address] [facility] HEMATOLOGY MCHC 30.4 32.0 - 36.0 10/01/[address] [facility] HEMATOLOGY MCV 69.1 80.0 - 98.0 10/01/[address] [facility] HEMATOLOGY MCH 21.0 27.0 - 31.0 10/01/[address] [facility] HEMATOLOGY Platelet 416 133 - 450 10/01/2018 [facility] MPV 7.3 7.4 - 10.4 10/01/2018 [facility] Microcyte 2+ *ABN* (10/01/18 5:20 AM) None Seen 10/01/[address] [facility] HEMATOLOGY Eosinophils # 0.1 0.0 - 0.5 10/01/[address] [facility] HEMATOLOGY Basophils # 0.1 0.0 - 0.2 10/01/[address] [facility] HEMATOLOGY Monocytes 9.4 2.0 - 12.0 10/01/2018 [facility] Segs 68.9 45.0 - 75.0 10/01/2018 [facility] Lymphocytes 19.5 20.0 - 40.0 10/01/2018 [facility] Lymphocytes # 1.9 1.0 - 5.5 10/01/2018 [facility] HEMATOLOGY Monocytes # 0.9 0.0 - 0.8 10/01/[address] [facility] HEMATOLOGY Neutrophils # 6.6 1.5 - 8.1 10/01/[address] [facility] HEMATOLOGY Eosinophils 1.5 0.0 - 4.0 10/01/[address] [facility] HEMATOLOGY Basophils 0.7 0.0 - 1.0 10/01/[address] [facility] CHEM PANEL Calcium Lvl 9.3 8.5 - 10.5 10/01/[address] [facility] CHEM PANEL Albumin Lvl 3.8 3.5 - 5.0 10/01/[address] [facility] CHEM PANEL BUN 12 7 - 22 10/01/[address] [facility] CHEM PANEL Glucose Lvl 129 70 - 99 10/01/[address] [facility] CHEM PANEL CO2 28 24 - 32 10/01/[address] [facility] CHEM PANEL Potassium Lvl 2.7 3.5 - 5.1 10/01/2018 Result Comment: Critical Result(s) snell d to BUCK SCHAEFFER at 09/30/2018 21:50 by REGLA. Read back OK. [facility] CHEM PANEL Sodium Lvl 142 135 - 145 10/01/[address] [facility] CHEM PANEL Chloride Lvl 105 95 - 109 10/01/[address] [facility] CHEM PANEL eGFR 59 10/01/2018 Result Comment: The eGFR is calculated using the [...] from the National Kidney Disease Education Program (NKDEP) which additionally recommends that when the eGFR is used in patients with extremes of body mass index for purposes of drug dosing, the eGFR should be multiplied by the estimated BMI. [facility] CHEM PANEL ALT 69 0 - 65 10/01/[address] [facility] CHEM PANEL Creatinine Lvl 1.08 0.50 - 1.40 10/01/[address] [facility] CHEM PANEL Total Protein 7.6 6.4 - 8.4 10/01/[address] [facility] CHEM PANEL Bili Total 0.5 0.2 - 1.3 10/01/[address] [facility] CHEM PANEL Alk Phos 139 39 - 136 10/01/[address] [facility] CHEM PANEL AST 90 0 - 37 10/01/[address] [facility] CHEM PANEL AGAP 11.7 10.0 - 20.0 10/01/[address] [facility] CHEM PANEL B/C Ratio 11 6 - 25 10/01/[address] [facility] CHEM PANEL Globulin 3.8 2.7 - 4.2 10/01/[address] [facility] CHEM PANEL A/G Ratio 1.0 0.7 - 1.6 10/01/[address] [facility] ENDOCRINOLOGY S Preg Ne gative *NA* (09/30/18 9:29 PM) Negative 10/01/[address] [facility] HEMATOLOGY Basophils # 0.1 0.0 - 0.2 10/01/[address] [facility] HEMATOLOGY Microcyte 3+ *NA* (09/30/18 9:29 PM) None Seen 10/01/[address] [facility] HEMATOLOGY Eosinophils # 0.1 0.0 - 0.5 10/01/[address] [facility] HEMATOLOGY Monocytes # 0.8 0.0 - 0.8 10/01/[address] [facility] HEMATOLOGY Neutrophils # 8.2 1.5 - 8.1 10/01/[address] [facility] HEMATOLOGY Lymphocytes # 1.1 1.0 - 5.5 10/01/[address] [facility] HEMATOLOGY Basophils 0.7 0.0 - 1.0 10/01/[address] [facility] HEMATOLOGY Eosinophils 0.8 0.0 - 4.0 10/01/[address] [facility] HEMATOLOGY Monocytes 7.6 2.0 - 12.0 10/01/[address] [facility] HEMATOLOGY Lymphocytes 10.4 20.0 - 40.0 10/01/[address] [facility] HEMATOLOGY Segs 80.5 45.0 - 75.0 10/01/[address] [facility] HEMATOLOGY Plt Morph Shobha l (09/30/18 9:29 PM) Normal 10/01/[address] [facility] HEMATOLOGY RDW 17.6 11.5 - 14.5 10/01/[address] [facility] HEMATOLOGY Platelet 420 133 - 450 10/01/[address] [facility] HEMATOLOGY MPV 7.2 7.4 - 10.4 10/01/[address] [facility] HEMATOLOGY RBC 4.92 4.20 - 5.40 10/01/[address] [facility] HEMATOLOGY WBC 10.2 3.7 - 10.4 10/01/[address] [facility] HEMATOLOGY MCHC 31.4 32.0 - 36.0 10/01/[address] [facility] HEMATOLOGY MCV 68.1 80.0 - 98.0 10/01/[address] [facility] HEMATOLOGY MCH 21.4 27.0 - 31.0 10/01/[address] [facility] HEMATOLOGY Hgb 10.5 12.0 - 16.0 10/01/[address] [facility] HEMATOLOGY Hct 33.5 36.0 - 48.0 10/01/[address] [facility] CHEM PANEL B/C Ratio 9 6 - 25 06/29/[address] [facility] CHEM PANEL AGAP 12.5 10.0 - 20.0 06/29/[address] [facility] CHEM PANEL Globulin 3.5 2.7 - 4.2 06/29/[address] [facility] CHEM PANEL A/G Ratio 0.9 0.7 - 1.6 06/29/[address] [facility] CHEM PANEL Sodium Lvl 140 135 - 145 06/29/[address] [facility] CHEM PANEL Chloride Lvl 103 95 - 109 06/29/[address] [facility] CHEM PANEL Potassium Lvl 3.5 3.5 - 5.1 06/29/[address] [facility] CHEM PANEL Calcium Lvl 8.6 8.5 - 10.5 06/29/[address] [facility] CHEM PANEL AST 33 0 - 37 06/29/[address] [facility] CHEM PANEL ALT 37 0 - 65 06/29/[address] [facility] CHEM PANEL Creatinine Lvl 0.66 0.50 - 1.40 06/29/[address] [facility] CHEM PANEL eGFR 102 06/29/2018 Result Comment: The eGFR is calculated using the [...] from the National Kidney Disease Education Program (NKDEP) which additionally recommends that when the eGFR is used in patients with extremes of body mass index for purposes of drug dosing, the eGFR should be multiplied by the estimated BMI. [facility] CHEM PANEL Albumin Lvl 3.1 3.5 - 5.0 06/29/[address] [facility] CHEM PANEL CO2 28 24 - 32 06/29/[address] [facility] CHEM PANEL BUN 6 7 - 22 06/29/[address] [facility] CHEM PANEL Glucose Lvl 116 70 - 99 06/29/[address] [facility] CHEM PANEL Alk Phos 76 39 - 136 06/29/[address] [facility] CHEM PANEL Total Protein 6.6 6.4 - 8.4 06/29/[address] [facility] CHEM PANEL Bili Total 0.8 0.2 - 1.3 06/29/[address] [facility] HEMATOLOGY MCH 25.4 27.0 - 31.0 06/29/[address] [facility] HEMATOLOGY Platelet 342 133 - 450 06/29/[address] [facility] HEMATOLOGY MCHC 32.4 32.0 - 36.0 06/29/[address] [facility] HEMATOLOGY MPV 7.5 7.4 - 10.4 06/29/[address] [facility] HEMATOLOGY RDW 17.0 11.5 - 14.5 06/29/[address] [facility] HEMATOLOGY Hgb 11.4 12.0 - 16.0 06/29/[address] [facility] HEMATOLOGY WBC 10.7 3.7 - 10.4 06/29/[address] [facility] HEMATOLOGY Hct 35.2 36.0 - 48.0 06/29/[address] [facility] HEMATOLOGY RBC 4.50 4.20 - 5.40 06/29/[address] [facility] HEMATOLOGY MCV 78.3 80.0 - 98.0 06/29/[address] [facility] HEMATOLOGY Microcyte 1+ *ABN* (06/29/18 4:55 AM) None Seen 06/29/[address] [facility] HEMATOLOGY Eosinophils # 0.1 0.0 - 0.5 06/29/[address] [facility] HEMATOLOGY Monocytes # 1.0 0.0 - 0.8 06/29/2018 [facility] Lymphocytes # 1.4 1.0 - 5.5 06/29/[address] [facility] HEMATOLOGY Eosinophils 0.5 0.0 - 4.0 06/29/[address] [facility] HEMATOLOGY Monocytes 9.3 2.0 - 12.0 06/29/[address] [facility] HEMATOLOGY Lymphocytes 13.2 20.0 - 40.0 06/29/[address] [facility] HEMATOLOGY Neutrophils # 8.2 1.5 - 8.1 06/29/[address] [facility] HEMATOLOGY Basophils 0.4 0.0 - 1.0 06/29/[address] [facility] HEMATOLOGY Segs 76.6 45.0 - 75.0 06/29/[address] [facility] BLOOD BANK RESULTS Antibody Scrn Positive 1 (06/24/18 3:37 PM) 06/24/2018 Result Comment: 06/24/2018 1 7:21 [id number]
"Significant Findings of _Pos AB Screen_ called to _Marita Gallo RN_ at _06/24/2018 17:21_ by _MV_. Read Back OK" [facility] BLOOD [facility] RESULTS ABO/Rh O POS 06/24/[address] [facility] BLOOD [facility] RESULTS AB Int Anti Jk(a) 06/24/[address] [facility] BLOOD BANK RESULTS Antigen ISIS Int Jk(a) neg 06/24/[address] [facility] CHEM PANEL VITAMIN B1 (THIAMINE) WHO LE BLOOD 155.9 66.5 - 200.0 06/24/2018 Result Comment: This test wa s developed and its performance characteristics
determined by [employer]. It has not been cleared or
approved by the Food and Drug Administration.
Performed At: [facility]
[id number] [place], [place] [id number]
Eliceo Leroy MD Ph:[phone] [facility] CHEM PANEL eGFR 66 06/24/2018 Result Comment: The eGFR is calculated using the [...] from the National Kidney Disease Education Program (NKDEP) which additionally recommends that when the eGFR is used in patients with extremes of body mass index for purposes of drug dosing, the eGFR should be multiplied by the estimated BMI. [facility] CHEM PANEL AST 14 0 - 37 06/24/[address] [facility] CHEM PANEL ALT 30 0 - 65 06/24/[address] [facility] CHEM PANEL Creatinine Lvl 0.98 0.50 - 1.40 06/24/[address] [facility] CHEM PANEL Bili Total 0.4 0.2 - 1.3 06/24/[address] [facility] CHEM PANEL Total Protein 8.3 6.4 - 8.4 06/24/[address] [facility] CHEM PANEL Calcium Lvl 9.7 8.5 - 10.5 06/24/[address] [facility] CHEM PANEL Glucose Lvl 128 70 - 99 06/24/[address] [facility] CHEM PANEL CO2 27 24 - 32 06/24/[address] [facility] CHEM PANEL Albumin Lvl 4.2 3.5 - 5.0 06/24/[address] [facility] CHEM PANEL BUN 18 7 - 22 06/24/[address] [facility] CHEM PANEL Chloride Lvl 104 95 - 109 06/24/[address] [facility] CHEM PANEL Sodium Lvl 141 135 - 145 06/24/[address] [facility] CHEM PANEL Potassium Lvl 3.6 3.5 - 5.1 06/24/[address] [facility] CHEM PANEL Alk Phos 100 39 - 136 06/24/[address] [facility] CHEM PANEL B/C Ratio 18 6 - 25 06/24/[address] [facility] CHEM PANEL A/G Ratio 1.0 0.7 - 1.6 06/24/[address] [facility] CHEM PANEL Globulin 4.1 2.7 - 4.2 06/24/[address] [facility] CHEM PANEL AGAP 13.6 10.0 - 20.0 06/24/[address] [facility] HEMATOLOGY Eosinophils # 0.1 0.0 - 0.5 06/24/[address] [facility] HEMATOLOGY Microcyte 1+ *ABN* (06/24/18 3:37 PM) None Seen 06/24/[address] [facility] HEMATOLOGY Basophils # 0.2 0.0 - 0.2 06/24/[address] [facility] HEMATOLOGY Basophils 1.3 0.0 - 1.0 06/24/[address] [facility] HEMATOLOGY Eosinophils 1.1 0.0 - 4.0 06/24/[address] [facility] HEMATOLOGY Lymphocytes # 2.2 1.0 - 5.5 06/24/[address] [facility] HEMATOLOGY Neutrophils # 7.7 1.5 - 8.1 06/24/[address] [facility] HEMATOLOGY Monocytes # 1.0 0.0 - 0.8 06/24/[address] [facility] HEMATOLOGY Monocytes 9.1 2.0 - 12.0 06/24/[address] [facility] HEMATOLOGY Segs 69.1 45.0 - 75.0 06/24/[address] [facility] HEMATOLOGY Lymphocytes 19.4 20.0 - 40.0 06/24/[address] [facility] HEMATOLOGY MPV 7.3 7.4 - 10.4 06/24/[address] [facility] HEMATOLOGY Platelet 406 133 - 450 06/24/[address] [facility] HEMATOLOGY RDW 17.1 11.5 - 14.5 06/24/[address] [facility] HEMATOLOGY MCH 25.4 27.0 - 31.0 06/24/[address] [facility] HEMATOLOGY Hct 44.5 36.0 - 48.0 06/24/[address] [facility] HEMATOLOGY MCHC 32.6 32.0 - 36.0 06/24/[address] [facility] HEMATOLOGY MCV 78.1 80.0 - 98.0 06/24/[address] [facility] HEMATOLOGY RBC 5.70 4.20 - 5.40 06/24/[address] [facility] HEMATOLOGY Hgb 14.5 12.0 - 16.0 06/24/[address] [facility] HEMATOLOGY WBC 11.2 3.7 - 10.4 06/24/[address] [facility] CHEM PANEL A/G Ratio 0.9 0.7 - 1.6 11/14/[address] [facility] CHEM PANEL Globulin 4.2 2.7 - 4.2 11/14/[address] [facility] CHEM PANEL AGAP 15.7 10.0 - 20.0 11/14/[address] [facility] CHEM PANEL B/C Ratio 26 6 - 25 11/14/[address] [facility] CHEM PANEL Calcium Lvl 9.1 8.5 - 10.5 11/14/[address] [facility] CHEM PANEL Albumin Lvl 3.7 3.5 - 5.0 11/14/[address] [facility] CHEM PANEL Potassium Lvl 2.7 3.5 - 5.1 11/14/2015 Result Comment: Critical Result(s) Mala Bethea at 11/14/2015 06:35 by hy. Read back OK. [facility] CHEM PANEL Chloride Lvl 95 95 - 109 11/14/[address] [facility] CHEM PANEL BUN 22 7 - 22 11/14/[address] [facility] CHEM PANEL Sodium Lvl 137 135 - 145 11/14/[address] [facility] CHEM PANEL Bili Total 0.9 0.2 - 1.3 11/14/[address] [facility] CHEM PANEL Alk Phos 72 39 - 136 11/14/[address] [facility] CHEM PANEL Total Protein 7.9 6.4 - 8.4 11/14/[address] [facility] CHEM PANEL Creatinine Lvl 0.86 0.50 - 1.40 11/14/[address] [facility] CHEM PANEL Glucose Lvl 159 70 - 99 11/14/[address] [facility] CHEM PANEL CO2 29 24 - 32 11/14/[address] [facility] CHEM PANEL ALT 26 0 - 65 11/14/[address] [facility] CHEM PANEL AST 17 0 - 37 11/14/[address] [facility] CHEM PANEL eGFR 80 11/14/2015 Result Comment: The eGFR is calculated using the [...] from the National Kidney Disease Education Program (NKDEP) which additionally recommends that when the eGFR is used in patients with extremes of body mass index for purposes of drug dosing, the eGFR should be multiplied by the estimated BMI. [facility] CHEM PANEL Lipase Lvl 301 73 - 393 11/14/[address] [facility] HEMATOLOGY Eosinophils 3.9 0.0 - 4.0 11/14/[address] [facility] HEMATOLOGY Basophils 0.8 0.0 - 1.0 11/14/[address] [facility] HEMATOLOGY Segs-Bands # 6.7 1.5 - 8.1 11/14/[address] [facility] HEMATOLOGY Microcyte 1+ *ABN* (11/14/15 6:10 AM) None Seen 11/14/2015 [facility] Segs 66.2 45.0 - 75.0 11/14/2015 [facility] Monocytes # 0.9 0.0 - 0.8 11/14/[address] [facility] HEMATOLOGY Lymphocytes # 2.1 1.0 - 5.5 11/14/[address] [facility] HEMATOLOGY Lymphocytes 20.3 20.0 - 40.0 11/14/[address] [facility] HEMATOLOGY Monocytes 8.8 2.0 - 12.0 11/14/[address] [facility] HEMATOLOGY Basophils # 0.1 0.0 - 0.2 11/14/[address] [facility] HEMATOLOGY Eosinophils # 0.4 0.0 - 0.5 11/14/2015 [facility] Platelet 449 133 - 450 11/14/2015 [facility] MPV 8.2 7.4 - 10.4 11/14/2015 [facility] RDW 15.8 11.5 - 14.5 11/14/2015 [facility] MCH 26.5 27.0 - 31.0 11/14/2015 [facility] MCHC 33.5 32.0 - 36.0 11/14/2015 [facility] MCV 79.1 80.0 - 98.0 11/14/2015 [facility] RBC 5.55 4.20 - 5.40 11/14/2015 [facility] Hct 43.9 36.0 - 48.0 11/14/2015 [facility] Hgb 14.7 12.0 - 16.0 11/14/2015 [facility] WBC 10.1 3.7 - 10.4 11/14/[address] [facility] Pathology Reports No Data Provided for This Section Diagnostic Reports Report Value Date Source Abdomen/Pelvis w IV contrast CT INDICATION: Left flank pain nausea history of gastric bypass COMPARISON: None. TECHNIQUE: Helical acquisition of the abdomen and pelvis was obtained from the lung bases to the pubic symphysis. Axial, sagittal and coronal images MPR were interpreted. This exam was performed according to our department dose optimization protocol, which includes automated exposure control, adjustment of the mA and/or kV according to patient size and/or use of iterative reconstruction technique. IV contrast: 100 cc Omnipaque 300 Enteric contrast: Yes DLP: 1136 mGy-cm FINDINGS: Lower thorax: Minor atelectasis present Liver: Severe fatty infiltration Gallbladder and Biliary tree: Gallbladder surgically absent without biliary duct dilation Pancreas: Unremarkable. Spleen: Unremarkable. Adrenals: Unremarkable. Kidneys and ureters: The kidney shows edema and delayed enhancement with mild hydronephrosis and hydroureter related to a 2 mm stone at the ureterovesical junction. Right kidney and collecting system are unremarkable. Urinary bladder: Unremarkable. Reproductive organs: No CT abnormality. Gastrointestinal tract/appendix: Postoperative findings from gastric bypass are appreciated. No complications are seen. There is no contrast opacification of the gastric remnant. Peritoneum, mesentery and retroperitoneum: Unremarkable. No peritoneal fluid. No pneumoperitoneum. Lymph nodes: Unremarkable. Vasculature: Normal opacification. Bones: No acute abnormality. Soft tissues: Unremarkable. Other: None. IMPRESSION: 1. Left renal edema and hydronephrosis related to a 2 mm stone at the ureterovesical junction. 2. Gastric bypass without dilatation. 3. Status post: Cystectomy 4. Severe fatty infiltration liver 09/30/[address] [facility] Chest 2 views DX HISTORY: Hyp ertension - Hypertension TECHNIQUE: PA and lateral views of the chest. COMPARISON: None available. FINDINGS: The lungs are well-inflated and clear. The aorta is tortuous. Otherwise, the cardiomediastinal silhouette and pulmonary vasculature are within normal limits. Cholecystectomy clips are noted. IMPRESSION: No radiographic evidence of acute cardiopulmonary disease. [id number] 06/24/2018 [facility] [facility] Abdomen AP DX EXAM: ABDOMINAL RADIOGRAPH(S) DATE: 11/14/2015 6:51 AM CDT . CLINICAL INDICATION: n/v with lap band, may have slipped. TECHNIQUE: SUPINE AND UPRIGHT VIEWS OF THE ABDOMEN COMPARISON: unavailable FINDINGS: There is radiodense material in the stomach overlying the LAP-BAND limiting the evaluation. Within that context, the orientation does appear atypical, and there appears to be approximately 50% of the stomach above the lap band.. The band is beneath the diaphragms, however. The bowel gas pattern is nonobstructive. There is no intra abdominal mass effect, organomegaly, or abnormal calcification. There is no worrisome skeletal abnormality. IMPRESSION: 1. Suspected abnormal positioning of the LAP-BAND with approximately 50% of the stomach above the band; however, evaluation is limited by only partial visualization of the band secondary to radiodense compound in the stomach 2. Nonobstructive bowel gas pattern. No clear evidence of gastric outlet obstruction 11/14/[address] [facility] Consultation Notes No Data Provided for This Section Discharge Summaries No Data Provided for This Section History and Physicals No Data Provided for This Section Vital Signs Vital Sign Value Date Comments Source Temperature Oral (F) 98.1 F 10/01/[address] [facility] Heart Rate 84 10/01/[address] [facility] Systolic (mm Hg) 127 10/01/[address] [facility] Diastolic (mm Hg) 75 10/01/[address] [facility] Respitory Rate 17 10/01/[address] [facility] Heart Rate 89 10/01/[address] [facility] Temperature Oral (F) 98.5 F 10/01/[address] [facility] Respitory Rate 16 10/01/[address] [facility] Systolic (mm Hg) 113 10/01/[address] [facility] Diastolic (mm Hg) 72 10/01/[address] [facility] Heart Rate 103 10/01/[address] [facility] Systolic (mm Hg) 109 10/01/[address] [facility] Diastolic (mm Hg) 76 10/01/[address] [facility] Respitory Rate 18 10/01/[address] [facility] Temperature Oral (F) 98.7 F 10/01/[address] [facility] Height 165.1 cm 10/01/[address] [facility] BMI Calculated 35.54 10/01/[address] [facility] Weight 96.864 10/01/[address] [facility] Weight 99.545 09/30/[address] [facility] Temperature Oral (F) 98.2 F 06/29/[address] [facility] Systolic (mm Hg) 174 06/29/[address] [facility] Diastolic (mm Hg) 116 06/29/[address] [facility] Respitory Rate 17 06/29/[address] [facility] Heart Rate 98 06/29/[address] [facility] Systolic (mm Hg) 143 06/29/[address] [facility] Diastolic (mm Hg) 85 06/29/[address] [facility] Heart Rate 93 06/29/[address] [facility] Respitory Rate 17 06/29/[address] [facility] Temperature Oral (F) 98.6 F 06/29/[address] [facility] Systolic (mm Hg) 150 06/29/[address] [facility] Diastolic (mm Hg) 91 06/29/[address] [facility] Heart Rate 101 06/29/[address] [facility] Temperature Oral (F) 98.2 F 06/29/[address] [facility] Respitory Rate 18 06/29/[address] [facility] Height 152.4 cm 06/24/[address] [facility] Weight 109.545 06/24/[address] [facility] BMI Calculated 47.17 06/24/[address] [facility] Respitory Rate 16 11/14/[address] [facility] Systolic (mm Hg) 112 11/14/[address] [facility] Diastolic (mm Hg) 69 11/14/[address] [facility] Heart Rate 60 11/14/[address] [facility] Heart Rate 65 11/14/[address] [facility] Respitory Rate 16 11/14/[address] [facility] Systolic (mm Hg) 105 11/14/[address] [facility] Diastolic (mm Hg) 70 11/14/[address] [facility] Systolic (mm Hg) 108 11/14/[address] [facility] Diastolic (mm Hg) 73 11/14/[address] [facility] Heart Rate 64 11/14/[address] [facility] Respitory Rate 16 11/14/[address] [facility] Temperature Oral (F) 97.0 F 11/14/[address] [facility] Height 165.1 cm 11/14/[address] [facility] Weight 96.364 11/14/[address] [facility] BMI Calculated 35.35 11/14/[address] [facility] Temperature Oral (F) 98.1 F 11/14/[address] [facility] Temperature Oral (F) 98.0 F 11/14/[address] [facility] Weight 92.7 11/14/[address] [facility] Encounters Location Location Details Encounter Type Encounter Number Reason For Visit Attending Provider ADM Date DC Date Status Source [facility]ation [id number] Jeffery Bryce 11/14/2015 11/15/2015 [facility] Inpatient [id number] Jeffery Bryce 06/28/2018 06/29/2018 [facility] Outpatient [id number] Jeffery Bryce 08/29/2018 Active [facility] Observation [id number] Chelita Meza 09/30/2018 10/01/2018 [facility] Procedures Procedure Code Date Perfomer Comments Source Laparoscopic gastric bypass 70 [id number] 06/28/[address] [facility] Cholecystectomy [id number] [facility] CS - section [id number] [facility] Laparoscopic adjustable gastric banding [id number] [facility] Miscellaneous operations<sup>1</sup> [id number] nerve bloc k 1998, 2000 at knee, ankle [facility] Removal of gastric band [id number] [facility] Tonsillectomy [id number] [facility] Assessment and Plan Assessment and Plan Date Source Extracted from:Title: Hospitalist [place] Note Author: Chelita Meza DO Date: 10/01/18 Impression and Plan - [...] DC today, otherwise will make inpatient. Extracted from:Title: History and Physical Author: Raymundo Madison MD Date: 09/30/18 Intractable nausea and vomiting Intractable pain Kidney stone Hydronephrosis Status post gastric bypass We will admit patient continue IV fluids, continue pain medicationnausea medicationurology consulted Ambulation 1-2 midnights 10/01/2018 [facility] Plan of Care No Data Provided for This Section Social History Social History Date Source Social History TypeResponse Smoking Status Former smoker; Type: Cigarettes; Ready to change: No; Concerns about tobacco use in household: No; Exposure to Tobacco Smoke None; Cigarette Smoking Last 365 Days No; Reg Smoking Cessation Counseling Yes entered on: 09/30/18 10/01/[address] [facility] Family History No Data Provided for This Section Advance Directives No Data Provided for This Section Functional Status No Data Provided for This Section
--- NOTE | 2019-08-15 22:34 | Emergency Department Note ---
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 Historian: Patient Arrival Mode: Car Onset (how long ago): hour(s) (2) Location: BILATERAL LOWER LEGS Quality: REDNESS, ITCHING, SWELLING AND PAIN Radiation: non-radiation Severity: moderate Onset quality: sudden Duration (how long): hour(s) (2) Timing of current episode: constant Progression: worsening Chronicity: new Context: recent illness, recent surgery Relieving factors: none Exacerbating factors: none Associated symptoms: denies other symptoms Treatments prior to arrival: none Past Medical/Family History Physician Review I have reviewed the patient's past medical and family history. Any updates have been documented here. Past Medical History Recent Fever: No Clinical Suspicion of Infectio: No New/Unexplained Change in Ment: No Past Medical History: Anxiety, Depression, Other Mental Illness, GERD Other Medical History: ADD BIPOLAR Past Surgical History: T&A, , Bariatric Surgery Social History Smoking Cessation: Former smoker Alcohol Use: None Any Illegal Drug Use: No TB Exposure/Symptoms: No Physically hurt or threatened: No Other Last Tetanus: UTD Any Pre-Existing Lines (PICC,: No Is patient up to date on immun: Yes Last Flu: DENIES Last Pneumovax: DENIES Review of Systems Review of Systems Constitutional: no symptoms EENTM: no symptoms Cardiovascular: no symptoms Respiratory: no symptoms Gastrointestinal: no symptoms Genitourinary: no symptoms Musculoskeletal: as per HPI Neurological: no symptoms Psychological: no symptoms Endocrine: no symptoms Hematological/Lymphatic: no symptoms Review of other systems All other systems reviewed and negative. Physical Exam Related Data Triage Vital Signs Vital Signs Date Time Temp Pulse Resp B/P (MAP) Pulse Ox O2 Delivery O2 Flow Rate FiO2 08/15/19 22:12 99.9 90 18 156/93 100 Vital signs reviewed: Yes Physical Exam CONSTITUTIONAL Constitutional: well-developed, well-nourished HENT HENT: normocephalic, atraumatic, oropharynx clear/moist, nose normal HENT L/R: left ext ear normal, right ext ear normal EYES Eyes: PERRL, conjunctivae normal NECK Neck: ROM normal PULMONARY Pulmonary: effort normal, breath sounds normal CARDIOVASCULAR Cardiovascular: regular rhythm, heart sounds normal, capillary refill normal, normal rate GASTROINTESTINAL Abdominal: soft, nontender, bowel sounds normal GENITOURINARY Genitourinary: exam deferred SKIN Skin: warm, dry, erythema, other (MULTIPLE RAISED INSECT BITES TO BOTH LOWER LEGS WITH ERYTHEMA AND SWELLING) MUSCULOSKELETAL Musculoskeletal: ROM normal NEUROLOGICAL Neurological: alert, oriented x 3, no gross motor or sensory deficits PSYCHOLOGICAL Psychological: mood/affect normal, judgement normal Critical Care Time Subsequent provider I assumed direction of critical care for this patient from another provider of my specialty. Assessment & Plan Assessment & Plan Final Impression: (1) INSECT BITE (NONVENOMOUS), UNSP LOWER LEG, INIT ENCNTR (2) CELLULITIS OF UNSPECIFIED PART OF LIMB Assessment & Plan PT WITH MULTIPLE INSECT BITES TO LOWER LEGS AND MILD RESULTING CELLULITIS, PT DISCHARGED WITH SCRIPT FOR DOXYCYCLINE 100 MG PO BID FOR 14 DAYS PT INSTRUCTED TO GET OTC BENADRYL AND TAKE ONE EVERY 4 TO 6 HOURS FOR ITCHING AND REDNESS Depart Disposition: HOME, SELF-CARE Last Vital Signs Date Time Temp Pulse Resp B/P (MAP) Pulse Ox O2 Delivery O2 Flow Rate FiO2 08/15/19 22:12 99.9 90 18 156/93 100 KRISTOFER RODRIGUEZ MD Aug 15, 2019 22:34
== END 2019-08-15 22:29 | disposition home or self-care (01) ==
LOC: ER 22:09
DX: S80.862A Insect bite (nonvenomous), left lower leg, initial encounter (principal); S80.861A Insect bite (nonvenomous), right lower leg, initial encounter; L03.116 Cellulitis of left lower limb; L03.115 Cellulitis of right lower limb; W57.XXXA Bitten or stung by nonvenomous insect and other nonvenomous arthropods, initial encounter; Y92.008 Other place in unspecified non-institutional (private) residence as the place of occurrence of the external cause; F41.9 Anxiety disorder, unspecified; K21.9 Gastro-esophageal reflux disease without esophagitis
CPT/HCPCS: 99282

== ENCOUNTER 2024-09-09 14:22 | Emergency (ER) | payer SELFPAY ==
[~2024-09-09] VITALS: Ht 162.6 cm; Wt 54.0 kg
[2024-09-09 14:25] VITALS: TEMP 98.7
[2024-09-09] MEDS ORDERED: SODIUM CHLORIDE 0.9% 1000ML 1,000 ML ONE (14:28)
[2024-09-09] MEDS: SODIUM CHLORIDE 0.9% 1000ML 1,000 ML IV ONE (14:46)
[2024-09-09 15:01] LABS: BASOPHILS # (AUTO) 0.1 (0.0-0.1); BASOPHILS % 0.8 % (0.0-1.0); EOSINOPHILS # (AUTO) 0.2 (0.0-0.4); EOSINOPHILS % 2.3 % (0.0-6.0); HEMATOCRIT 33.1 % (34.2-44.1); HEMOGLOBIN 10.7 g/dL (12.0-16.0); LYMPHOCYTES # (AUTO) 1.1 (1.0-3.2); LYMPHOCYTES % 17.2 % (18.0-39.1); MEAN CORPUSCULAR HEMOGLOBIN 27.3 pg (28-32); MEAN CORPUSCULAR HGB CONC 32.3 g/dL (31-35); MEAN CORPUSCULAR VOLUME 84.4 fL (81-99); MONOCYTES # (AUTO) 0.6 (0.2-0.8); MONOCYTES % 9.5 % (4.4-11.3); NEUTROPHILS # (AUTO) 4.5 (2.1-6.9); NEUTROPHILS % 69.9 % (38.7-80.0); PLATELET COUNT 304 x10e3/uL (140-360); RED BLOOD COUNT 3.92 x10e6/uL (3.6-5.1); RED CELL DISTRIBUTION WIDTH 13.9 % (11.7-14.4); WHITE BLOOD COUNT 6.39 x10e3/uL (4.8-10.8)
[2024-09-09 15:30] LABS: CLARITY,URINE CLEAR (CLEAR); COLOR,URINE YELLOW (YELLOW); GLUCOSE, URINE NEGATIVE (NEGATIVE); KETONES,URINE 1+ (NEGATIVE); LEUKOCYTE ESTERASE ,URINE MODERATE (NEGATIVE); NITRITE,URINE POSITIVE (NEGATIVE); OPIATES SCREEN,URINE NEGATIVE (NEGATIVE); PH,URINE 7 (5 - 7); PROTEIN,URINE DIPSTICK NEGATIVE (NEGATIVE)
[2024-09-09 15:31] LABS: AMPHETAMINES SCREEN,URINE NEGATIVE (NEGATIVE); BENZODIAZEPINES SCREEN,URINE NEGATIVE (NEGATIVE); BILIRUBIN,URINE NEGATIVE (NEGATIVE); CANNABINOIDS SCREEN,URINE NEGATIVE (NEGATIVE); COCAINE SCREEN,URINE NEGATIVE (NEGATIVE); METHADONE SCREEN, URINE NEGATIVE (NEGATIVE); PHENCYCLIDINE SCREEN,URINE NEGATIVE (NEGATIVE); URINE UROBILINOGEN 0.2 mg/dL (0.2 - 1)
[2024-09-09 15:35] LABS: BACTERIA,URINE MANY /HPF; EPITHELIAL CELLS,URINE MODERATE /LPF; RBC,URINE 0-5 /HPF (0-5)
[2024-09-09 15:41] LABS: ALBUMIN 3.8 g/dL (3.5-5.0); ALBUMIN/GLOBULIN RATIO 1.5 (0.8-2.0); ANION GAP 12.9 mmol/L (8-16); BILIRUBIN,TOTAL 0.6 mg/dL (0.2-1.2); CALCIUM 8.5 mg/dL (8.4-10.2); CREATININE, SERUM 0.8 mg/dL (0.57-1.11); TOTAL PROTEIN 6.4 g/dL (6.5-8.1)
[2024-09-09 15:42] LABS: POTASSIUM 2.9 mmol/L (3.5-5.1)
[2024-09-09] MEDS: KCL 20 MEQ PACKET/ ORAL SOLN PO STA (16:40)
[2024-09-09] MEDS: POTASSIUM CHLORIDE 20MEQ/100ML 200 ML IV ONE (16:41)
[2024-09-09] MEDS ORDERED: CEPHALEXIN500 MG PO (17:32)
[2024-09-09] MEDS ORDERED: SODIUM CHLORIDE 0.9% 250ML 250 ML ONE (18:55)
[2024-09-09 20:37] VITALS: PULSE 63; RESP 18
[2024-09-09 21:40] VITALS: BP 128/98; PULSE 78; RESP 18; TEMP 98.6; O2SAT 98
== END 2024-09-09 21:44 | disposition home or self-care (01) ==
LOC: ER 14:41
DX: R53.83 Other fatigue (principal); E87.6 Hypokalemia; N39.0 Urinary tract infection, site not specified; F15.10 Other stimulant abuse, uncomplicated; F31.9 Bipolar disorder, unspecified
CPT/HCPCS: 36415; 80053; 80307; 81001; 82550; 85025; 87086; 87186; 99283; J0696; J3480; J7030; J7050